=== PATIENT | male | born 1975 | race Caucasian/White ===

== ENCOUNTER 2017-08-09 11:30 | Inpatient (IN) | payer OTHER ==
[2017-08-09 13:11] VITALS: BMI 22.4
--- NOTE | 2017-08-09 14:54 | HP ---
CIWA Score - CIWA Score Nausea/Vomitin Muscle Tremors: 3 Anxiety: 3 Agitation: 3 Paroxysmal Sweats: 1-Minimal Palms Moist Orientation: 0-Oriented Tacttile Disturbances: 2-Mild Itch/Numbness/Burn Auditory Disturbances: 1-Very Mild Visual Disturbances: 0-None Headache: 2-Mild CIWA-Ar Total Score: 18 Admission ROS BHS - HPI Chief Complaint: i need help to stop drinking alcohol,cocaine,marijuana,dependence,seeking detox, withdrawal symptom, last detox ac1 o4/18 hiv since 07/14/1999 transgender from male to female non compliance with medications for 4 months weight loss anxiety,depression,insomnia Allergies/Adverse Reactions: Allergies Allergy/AdvReac Type Severity Reaction Status Date / Time No Known Allergies Allergy Verified 08/09/17 14:35 History of Present Illness: this 42 years old transgender male to female requested detox from alcohol, cocaine,marijuana and crystal meth requested detox Exam Limitations: No Limitations - Ebola screening Have you traveled outside of the country in the last 21 days: No Have you had contact with anyone from an Ebola affected area: No Have you been sick,other than usual withdrawal symptoms: No Do you have a fever: No - Review of Systems Constitutional: Loss of Appetite, Malaise, Night Sweats, Changes in sleep, Weakness, Unintentional Wgt. Loss EENT: reports: Nose Congestion Respiratory: reports: No Symptoms reported Cardiac: reports: No Symptoms Reported GI: reports: Nausea, Vomiting, Abdominal cramping : reports: No Symptoms Reported Musculoskeletal: reports: Back Pain, Muscle Pain Integumentary: reports: Dryness Neuro: reports: Headache, Tremors Endocrine: reports: No Symptoms Reported Hematology: reports: No Symptoms Reported Psychiatric: reports: No Sypmtoms Reported, Judgement Intact, Mood/Affect Appropiate, Anxious, Depressed Patient History - Patient Medical History Hx Anemia: Yes (LAB PENDING) Hx Asthma: No Hx Chronic Obstructive Pulmonary Disease (COPD): No Hx Cancer: No Hx Cardiac Disorders: No Hx Congestive Heart Failure: No Hx Hypertension: No Hx Hypercholesterolemia: No Hx Pacemaker: No HX Cerebrovascular Accident: No Hx Seizures: No Hx Dementia: No Hx Diabetes: No Hx Gastrointestinal Disorders: No Hx Liver Disease: No Hx Genitourinary Disorders: No Hx Sexually Transmitted Disorders: Yes (syphilis at age 38) Hx Renal Disease (ESRD): No Hx Thyroid Disease: No Hx Human Immunodeficiency Virus (HIV): Yes (since 07/14/1999) Hx Hepatitis C: No Hx Depression: No Hx Suicide Attempt: No Hx Bipolar Disorder: No Hx Schizophrenia: No Other Medical History: no suicidal,no homicidal - Patient Surgical History Past Surgical History: No Hx Neurologic Surgery: No Hx Cataract Extraction: No Hx Cardiac Surgery: No Hx Lung Surgery: No Hx Breast Surgery: No Hx Breast Biopsy: No Hx Abdominal Surgery: No Hx Appendectomy: No Hx Cholecystectomy: No Hx Genitourinary Surgery: No Hx Section: No Hx Orthopedic Surgery: No Anesthesia Reaction: No - PPD History Previous Implant?: Yes Documented Results: Negative w/o proof Implanted On Prior R Admission?: Yes Date: 12/10/15 PPD to be Administered?: Yes - Smoking Cessation Smoking history: Current every day smoker Have you smoked in the past 12 months: Yes Aproximately how many cigarettes per day: 20 Cigars Per Day: 0 Hx Chewing Tobacco Use: No Initiated information on smoking cessation: Yes 'Breaking Loose' booklet given: 08/09/17 - Substance & Tx. History Hx Alcohol Use: Yes Hx Substance Use: Yes Substance Use Type: Alcohol, Cocaine, Marijuana - Substances Abused Alcohol Route: Oral Frequency: Daily Amount used: 4 PINTS VODKA Age of first use: 12 Date of Last Use: 08/09/17 Cocaine Route: Smoking Frequency: Daily Amount used: $100-200 Age of first use: 16 Date of Last Use: 08/09/17 Marijuana/Hashish Route: Smoking Frequency: Daily Amount used: 1 blunt Age of first use: 13 Date of Last Use: 08/09/17 crystal meth Route: Smoking Frequency: 1-3 times last 30 days Amount used: 1 joint Age of first use: 38 Date of Last Use: 07/31/17 Family Disease History - Family Disease History Family Disease History: Diabetes: Grandparent, Sister Admission Physical Exam BHS - Vital Signs Vital Signs: Vital Signs - 24 hr 08/09/17 13:09 Temperature 97.2 F L Pulse Rate 73 Respiratory 20 Rate Blood Pressure 128/85 - Physical General Appearance: Yes: Moderate Distress, Tremorous, Irritable, Sweating, Anxious HEENTM: Yes: Normal ENT Inspection, KOURTNEY, Pharynx Normal Respiratory: Yes: Lungs Clear, Normal Breath Sounds, No Respiratory Distress Neck: Yes: Within Normal Limits, Supple, Trachea in good position Breast: Yes: Within Normal Limits Cardiology: Yes: Within Normal Limits, Regular Rhythm, Regular Rate, S1, S2 Abdominal: Yes: Within Normal Limits, Normal Bowel Sounds, Non Tender, Flat, Soft Genitourinary: Yes: Within Normal Limits Back: Yes: Muscle Spasm Musculoskeletal: Yes: full range of Motion, Back pain, Muscle Pain Extremities: Yes: Normal Range of Motion, Tremors Neurological: Yes: welfare aide II-XII NML intact, Fully Oriented, Alert, Motor Strength 5/5 Integumentary: Yes: Dry Lymphatic: Yes: Within Normal Limits - Diagnostic (1) Alcohol dependence with withdrawal Current Visit: No Status: Acute Qualifiers: Complication of substance-induced condition: uncomplicated Qualified Code(s ): F10.230 - Alcohol dependence with withdrawal, uncomplicated (2) Cannabis dependence Current Visit: No Status: Chronic (3) Cocaine dependence in controlled environment Current Visit: No Status: Chronic (4) HIV disease Current Visit: No Status: Chronic (5) Nicotine dependence Current Visit: No Status: Chronic Qualifiers: Nicotine product type: cigarettes Substance use status: uncomplicated Qualified Code(s): F17.210 - Nicotine dependence, cigarettes, uncomplicated (6) Methamphetamine abuse Current Visit: Yes Status: Acute (7) Weight loss Current Visit: Yes Status: Acute (8) Endocrine disorder in ihst-if-voiood transgender person Current Visit: Yes Status: Acute Cleared for Admission [facility] - Detox or Rehab [facility] Level of Care: Medically Managed Detox Regimen/Protocol: Librium [facility] Breath Alcohol Content Breath Alcohol Content: 0 Urine Drug Screen - Results Drug Screen Negative: No Urine Drug Screen Results: THC-Marijuana, DON-Cocaine, AMP-Amphetamines, MET- Methamphetamine, BZO-Benzodiazepines
[2017-08-09] MEDS ORDERED: guaiFENesin/D-METHORPHAN HB 10 ML UNIT-DOSE CUPS PO PRN (15:10)
[2017-08-09] MEDS ORDERED: chlordiazePOXIDE HCL 25 MG CAPSULE PO PRN (15:10)
[2017-08-09] MEDS ORDERED: LOPERAMIDE HCL 2 MG CAPSULE PO PRN (15:10)
[2017-08-09] MEDS ORDERED: MAG HYDROX/AL HYDROX/SIMETH 30 ML UNIT-DOSE CUP PO PRN (15:10)
[2017-08-09] MEDS ORDERED: NICOTINE POLACRILEX 2 MG GUM BC PRN (15:10)
[2017-08-09] MEDS ORDERED: P-EPHED 60MG/TRIPROLIDI 2.5MG TABLET PO PRN (15:10)
[2017-08-09] MEDS ORDERED: IBUPROFEN 400 MG TABLET (FP) PO PRN (15:10)
[2017-08-09] MEDS ORDERED: MAGNESIUM HYDROX 2400MG/30ML ORAL SUSPENSION 30 ML CUP PO PRN (15:10)
[2017-08-09] MEDS ORDERED: MENTHOL/PHENOL 1 EACH UD MM PRN (15:10)
[2017-08-09] MEDS ORDERED: hydrOXYzine PAMOATE 50 MG CAPSULE (FP) PO PRN (15:10)
[2017-08-09] MEDS ORDERED: MAGNESIUM CITRATE 300 ML BOTTLE PO PRN (15:10)
[2017-08-09] MEDS ORDERED: ACETAMINOPHEN 325 MG TABLET (FP) PO PRN (15:10)
[2017-08-09] MEDS ORDERED: chlordiazePOXIDE HCL 25 MG CAPSULE PO ONE (15:45)
[2017-08-09] MEDS: NICOTINE 21 MG/24 HOURS TOPICAL PATCH TD SCH (17:28)
[2017-08-09] MEDS: chlordiazePOXIDE HCL 25 MG CAPSULE PO SCH ×2 (18:22→22:30)
[2017-08-09] MEDS: THIAMINE HCL 100 MG TABLET (FP) PO SCH (22:28)
[2017-08-09 23:10] LABS: URINE APPEARANCE SLCLOUDY; URINE BILIRUBIN NEGATIVE (<2.0 mg/dL); URINE BLOOD NEGATIVE (NEGATIVE); URINE COLOR YELLOW; URINE GLUCOSE (UA) NEGATIVE (NEGATIVE); URINE KETONE NEGATIVE (NEGATIVE); URINE NITRITE NEGATIVE (NEGATIVE); URINE PROTEIN NEGATIVE (NEGATIVE); URINE UROBILINOGEN NEGATIVE mg/dL (0.2-1.0)
[2017-08-09 23:11] LABS: URINE LEUK ESTERASE 2+ (NEGATIVE)
[2017-08-09 23:18] LABS: EPI CELLS RARE /HPF (FEW); URINE MUCUS RARE
[2017-08-10] MEDS: chlordiazePOXIDE HCL 25 MG CAPSULE PO SCH ×2 (06:05→10:47)
[2017-08-10 10:20] LABS: HEMATOCRIT 43.8 % (35.4-49); HEMOGLOBIN 14.1 GM/dL (11.7-16.9); MCH 28.5 pg (25.7-33.7); MCHC 32.2 g/dl (32.0-35.9); MEAN CELL VOLUME 88.5 fl (80-96); RBC 4.95 M/mm3 (4.00-5.60); RDW 14.1 % (11.9-15.9); WHITE BLOOD COUNT 5.6 K/mm3 (4.0-10.0)
[2017-08-10 10:26] LABS: CHLORIDE 106 mmol/L (98-107); POTASSIUM 5.3 mmol/L (3.5-5.1); SODIUM 140 mmol/L (136-145)
[2017-08-10] MEDS: PRENATAL VITAMINS W/ FOLIC ACID TABLET (FP) PO SCH (10:46)
[2017-08-10] MEDS: NICOTINE 21 MG/24 HOURS TOPICAL PATCH TD SCH (10:47)
[2017-08-10 11:10] LABS: ALBUMIN 3.8 g/dl (3.4-5.0); ALK PHOS 93 U/L (45-117); ANION GAP 6 (8-16); BILIRUBIN,TOTAL 0.6 mg/dL (0.2-1.0); BLOOD UREA NITROGEN 13 mg/dL (7-18); CALCIUM 9.2 mg/dL (8.5-10.1); CO2 28 mmol/L (21-32); CREATININE 1.1 mg/dL (0.7-1.3); GLUCOSE,RANDOM 90 mg/dL (74-106); SGOT/AST 18 U/L (15-37); SGPT/ALT 22 U/L (12-78); TOT PROT 8.1 g/dl (6.4-8.2)
--- NOTE | 2017-08-10 11:29 | EKG ---
Test Reason : Blood Pressure : / mmHG Vent. Rate : 066 BPM Atrial Rate : 066 BPM P-R Int : 158 ms QRS Dur : 084 ms QT Int : 416 ms P-R-T Axes : 075 074 073 degrees QTc Int : 436 ms SINUS RHYTHM WITH MARKED SINUS ARRHYTHMIA NO PREVIOUS ECGS AVAILABLE Confirmed by PRICILA ESCOBAR MD ([id number]) on 08/10/2017 11:29:25 AM Referred By: Confirmed By:PRICILA ESCOBAR MD
[2017-08-10] MEDS ORDERED: diazePAM 5 MG TABLET PO PRN (11:39)
--- NOTE | 2017-08-10 11:50 | PN ---
S CIWA - CIWA Score Nausea/Vomitin Muscle Tremors: 3 Anxiety: 3 Agitation: 2 Paroxysmal Sweats: 1-Minimal Palms Moist Orientation: 0-Oriented Tacttile Disturbances: 1-Very Mild Itch/Numbness Auditory Disturbances: 1-Very Mild Visual Disturbances: 0-None Headache: 2-Mild CIWA-Ar Total Score: 16 BHS Progress Note (SOAP) Subjective: ALERT,IRRITABLE,ANXIOUS,INTERRUPTED SLEEP,TREMOR Objective: 08/10/17 11:45 Laboratory Last Values WBC 5.6 K/mm3 (4.0-10.0) D 08/10/17 05:50 RBC 4.95 M/mm3 (4.00-5.60) 08/10/17 05:50 Hgb 14.1 GM/dL (11.7-16.9) D 08/10/17 05:50 Hct 43.8 % (35.4-49) D 08/10/17 05:50 MCV 88.5 fl (80-96) 08/10/17 05:50 MCH 28.5 pg (25.7-33.7) 08/10/17 05:50 MCHC 32.2 g/dl (32.0-35.9) 08/10/17 05:50 RDW 14.1 % (11.9-15.9) 08/10/17 05:50 Plt Count No Result Required. 08/10/17 05:50 Manual Slide Review 08/10/17 05:50 Platelet Comment Mod plt clumping 08/10/17 05:50 Sodium 140 mmol/L (136-145) 08/10/17 05:50 Potassium 5.3 mmol/L (3.5-5.1) H 08/10/17 05:50 Chloride 106 mmol/L (98-107) 08/10/17 05:50 Carbon Dioxide 28 mmol/L (21-32) 08/10/17 05:50 Anion Gap 6 (8-16) L 08/10/17 05:50 BUN 13 mg/dL (7-18) 08/10/17 05:50 Creatinine 1.1 mg/dL (0.7-1.3) D 08/10/17 05:50 Creat Clearance w eGFR > 60 (>60) 08/10/17 05:50 Random Glucose 90 mg/dL (74-106) 08/10/17 05:50 Calcium 9.2 mg/dL (8.5-10.1) 08/10/17 05:50 Total Bilirubin 0.6 mg/dL (0.2-1.0) D 08/10/17 05:50 AST 18 U/L (15-37) D 08/10/17 05:50 ALT 22 U/L (12-78) 08/10/17 05:50 Alkaline Phosphatase 93 U/L (45-117) 08/10/17 05:50 Total Protein 8.1 g/dl (6.4-8.2) 08/10/17 05:50 Albumin 3.8 g/dl (3.4-5.0) 08/10/17 05:50 Urine Color Yellow 08/09/17 22:30 Urine Appearance Slcloudy 08/09/17 22:30 Urine pH 5.0 (5.0-8.0) 08/09/17 22:30 Ur Specific [place] 1.025 (1.001-1.035) 08/09/17 22:30 Urine Protein Negative (NEGATIVE) 08/09/17 22:30 Urine Glucose (UA) Negative (NEGATIVE) 08/09/17 22:30 Urine Ketones Negative (NEGATIVE) 08/09/17 22:30 Urine Blood Negative (NEGATIVE) 08/09/17 22:30 Urine Nitrite Negative (NEGATIVE) 08/09/17 22:30 Urine Bilirubin Negative (<2.0 mg/dL) 08/09/17 22:30 Urine Urobilinogen Negative mg/dL (0.2-1.0) 08/09/17 22:30 Ur Leukocyte Esterase 2+ (NEGATIVE) H 08/09/17 22:30 Urine WBC (Auto) 41 /hpf (3-5) 08/09/17 22:30 Urine RBC (Auto) 2 /hpf (0-3) 08/09/17 22:30 Ur Epithelial Cells Rare /HPF (FEW) 08/09/17 22:30 Urine Mucus Rare 08/09/17 22:30 08/10/17 11:47 EKG NSR,LVH QT 362/425 Laboratory Last Values WBC 5.6 K/mm3 (4.0-10.0) D 08/10/17 05:50 RBC 4.95 M/mm3 (4.00-5.60) 08/10/17 05:50 Hgb 14.1 GM/dL (11.7-16.9) D 08/10/17 05:50 Hct 43.8 % (35.4-49) D 08/10/17 05:50 MCV 88.5 fl (80-96) 08/10/17 05:50 MCH 28.5 pg (25.7-33.7) 08/10/17 05:50 MCHC 32.2 g/dl (32.0-35.9) 08/10/17 05:50 RDW 14.1 % (11.9-15.9) 08/10/17 05:50 Plt Count No Result Required. 08/10/17 05:50 Manual Slide Review 08/10/17 05:50 Platelet Comment Mod plt clumping 08/10/17 05:50 Sodium 140 mmol/L (136-145) 08/10/17 05:50 Potassium 5.3 mmol/L (3.5-5.1) H 08/10/17 05:50 Chloride 106 mmol/L (98-107) 08/10/17 05:50 Carbon Dioxide 28 mmol/L (21-32) 08/10/17 05:50 Anion Gap 6 (8-16) L 08/10/17 05:50 BUN 13 mg/dL (7-18) 08/10/17 05:50 Creatinine 1.1 mg/dL (0.7-1.3) D 08/10/17 05:50 Creat Clearance w eGFR > 60 (>60) 08/10/17 05:50 Random Glucose 90 mg/dL (74-106) 08/10/17 05:50 Calcium 9.2 mg/dL (8.5-10.1) 08/10/17 05:50 Total Bilirubin 0.6 mg/dL (0.2-1.0) D 08/10/17 05:50 AST 18 U/L (15-37) D 08/10/17 05:50 ALT 22 U/L (12-78) 08/10/17 05:50 Alkaline Phosphatase 93 U/L (45-117) 08/10/17 05:50 Total Protein 8.1 g/dl (6.4-8.2) 08/10/17 05:50 Albumin 3.8 g/dl (3.4-5.0) 08/10/17 05:50 Urine Color Yellow 08/09/17 22:30 Urine Appearance Slcloudy 08/09/17 22:30 Urine pH 5.0 (5.0-8.0) 08/09/17 22:30 Ur Specific [place] 1.025 (1.001-1.035) 08/09/17 22:30 Urine Protein Negative (NEGATIVE) 08/09/17 22:30 Urine Glucose (UA) Negative (NEGATIVE) 08/09/17 22:30 Urine Ketones Negative (NEGATIVE) 08/09/17 22:30 Urine Blood Negative (NEGATIVE) 08/09/17 22:30 Urine Nitrite Negative (NEGATIVE) 08/09/17 22:30 Urine Bilirubin Negative (<2.0 mg/dL) 08/09/17 22:30 Urine Urobilinogen Negative mg/dL (0.2-1.0) 08/09/17 22:30 Ur Leukocyte Esterase 2+ (NEGATIVE) H 08/09/17 22:30 Urine WBC (Auto) 41 /hpf (3-5) 08/09/17 22:30 Urine RBC (Auto) 2 /hpf (0-3) 08/09/17 22:30 Ur Epithelial Cells Rare /HPF (FEW) 08/09/17 22:30 Urine Mucus Rare 08/09/17 22:30 Assessment: 08/10/17 11:49 WITHDRAWAL SYMPTOM Plan: CONTINUE DETOX,K 5.3,WILL REPEAT K IN AM,REPEAT UA R/O UTI
[2017-08-10] MEDS ORDERED: diazePAM 5 MG TABLET PO ONE (12:05)
[2017-08-10] MEDS: diazePAM 5 MG TABLET PO SCH ×2 (13:59→22:42)
[2017-08-10] MEDS ORDERED: chlordiazePOXIDE HCL 25 MG CAPSULE PO SCH (17:00)
--- NOTE | 2017-08-10 19:39 | CONSULT ---
[facility] Psychiatric Consult - Data Date of interview: 08/10/17 Admission source: [facility] Identifying data: Readmission to [facility] for this 42 y/o AA transgender male seeking detox treatment on for alcohol,cocaine,methamphetamine and cannabis dependence.Patient is single without children,homeless,unemployed and supported on [employer] funds. Substance Abuse History: Confirmed by patient in this interview.Smoking history : Current every day smoker. Have you smoked in the past 12 months: Yes. Aproximately how many cigarettes per day: 20. Cigars Per Day: 0. Hx Chewing Tobacco Use: No. Initiated information on smoking cessation: Yes. 'Breaking Loose' booklet given: 08/09/17. - Substance & Tx. History. Hx Alcohol Use: Yes. Hx Substance Use: Yes. Substance Use Type: Alcohol, Cocaine, Marijuana. - Substances Abused. Alcohol. Route: Oral. Frequency: Daily. Amount used : 4 PINTS VODKA. Age of first use: 12. Date of Last Use: 08/09/17. Cocaine. Route: Smoking. Frequency: Daily. Amount used: $100-200. Age of first use: 16. Date of Last Use: 08/09/17. Marijuana/Hashish. Route: Smoking. Frequency: Daily. Amount used: 1 blunt. Age of first use: 13. Date of Last Use: 08/09/17. crystal meth. Route: Smoking. Frequency: 1-3 times last 30 days. Amount used: 1 joint. Age of first use: 38. Date of Last Use: 07/31/17 Medical History: HIV infection since 1999,anemia and a history of treatment for syphilis. Psychiatric History: Patient denies. Physical/Sexual Abuse/Trauma History: Patient denies. Additional Comment: Urine Drug Screen Results: THC-Marijuana, DON-Cocaine, AMP- Amphetamines, MET-Methamphetamine, BZO-Benzodiazepines.Noted. Mental Status Exam - Mental Status Exam Alert and Oriented to: Time, Place, Person Cognitive Function: Good Patient Appearance: Well Groomed Mood: Hopeful Affect: Normal Range Patient Behavior: Fatigued, Cooperative Speech Pattern: Clear Voice Loudness: Normal Thought Process: Intact, Goal Oriented Thought Disorder: Not Present Hallucinations: Denies Suicidal Ideation: Denies Homicidal Ideation: Denies Insight/Judgement: Poor Sleep: Well Appetite: Good Muscle strength/Tone: Normal Gait/Station: Normal Psychiatric Findings - Problem List ([place] 1, 2,3) (1) Opioid dependence with withdrawal Current Visit: Yes Status: Acute (2) Alcohol dependence with withdrawal Current Visit: Yes Status: Acute Qualifiers: Complication of substance-induced condition: uncomplicated Qualified Code(s ): F10.230 - Alcohol dependence with withdrawal, uncomplicated (3) Cannabis dependence Current Visit: Yes Status: Acute (4) Cocaine dependence in controlled environment Current Visit: Yes Status: Acute (5) Methamphetamine abuse Current Visit: Yes Status: Acute (6) Nicotine dependence Current Visit: Yes Status: Acute Qualifiers: Nicotine product type: cigarettes Substance use status: uncomplicated Qualified Code(s): F17.210 - Nicotine dependence, cigarettes, uncomplicated - Initial Treatment Plan Initial Treatment Plan: Psychoeducation.Detoxification in process.Observation.
[2017-08-10] MEDS: THIAMINE HCL 100 MG TABLET (FP) PO SCH (22:42)
[2017-08-11] MEDS: diazePAM 5 MG TABLET PO SCH ×3 (06:24→22:45)
[2017-08-11] MEDS: PRENATAL VITAMINS W/ FOLIC ACID TABLET (FP) PO SCH (10:42)
[2017-08-11] MEDS: NICOTINE 21 MG/24 HOURS TOPICAL PATCH TD SCH (10:42)
--- NOTE | 2017-08-11 12:14 | PN ---
BHS CIWA - CIWA Score Nausea/Vomitin Muscle Tremors: 2 Anxiety: 2 Agitation: 2 Paroxysmal Sweats: 1-Minimal Palms Moist Orientation: 0-Oriented Tacttile Disturbances: 1-Very Mild Itch/Numbness Auditory Disturbances: 1-Very Mild Visual Disturbances: 0-None Headache: 2-Mild CIWA-Ar Total Score: 14 BHS Progress Note (SOAP) Subjective: ALERT,IRRITABLE,ANXIOUS,INTERRUPTED SLEEP,ACHING PAIN Objective: 08/11/17 12:13 Vital Signs Temperature 98.6 F 08/11/17 09:24 Pulse Rate 93 H 08/11/17 09:24 Respiratory Rate 16 08/11/17 09:24 Blood Pressure 122/86 08/11/17 09:24 O2 Sat by Pulse Oximetry (%) Assessment: 08/11/17 12:13 WITHDRAWAL SYMPTOM Plan: CONTINUE DETOX,REPEAT UA
[2017-08-11] MEDS ORDERED: chlordiazePOXIDE 5 MG CAPSULE PO SCH (17:00)
[2017-08-11] MEDS: THIAMINE HCL 100 MG TABLET (FP) PO SCH (22:45)
[2017-08-11] MEDS: MELATONIN 5 MG TABLETS PO PRN (22:45)
[2017-08-12] MEDS: NICOTINE 21 MG/24 HOURS TOPICAL PATCH TD SCH (10:32)
[2017-08-12] MEDS: PRENATAL VITAMINS W/ FOLIC ACID TABLET (FP) PO SCH (10:32)
[2017-08-12] MEDS: diazePAM 5 MG TABLET PO SCH ×2 (10:32→22:37)
--- NOTE | 2017-08-12 14:10 | PN ---
S Progress Note (SOAP) Subjective: alert,irritable,anxious,interrupted sleep Objective: 08/12/17 14:09 Vital Signs Temperature 98.2 F 08/12/17 09:16 Pulse Rate 83 08/12/17 09:16 Respiratory Rate 20 08/12/17 09:16 Blood Pressure 125/73 08/12/17 09:16 O2 Sat by Pulse Oximetry (%) Assessment: 08/12/17 14:09 withdrawal symptom Plan: continue detox,discharge in am
[2017-08-12] MEDS ORDERED: chlordiazePOXIDE HCL 10 MG CAPSULE PO SCH (17:00)
[2017-08-12] MEDS: THIAMINE HCL 100 MG TABLET (FP) PO SCH (22:37)
[2017-08-12] MEDS: MELATONIN 5 MG TABLETS PO PRN (22:38)
--- NOTE | 2017-08-13 10:04 | PN ---
S Progress Note (SOAP) Subjective: ALERT,NO COMPLAINT Objective: 08/13/17 10:02 Vital Signs Temperature 97.9 F 08/13/17 09:30 Pulse Rate 86 08/13/17 09:30 Respiratory Rate 20 08/13/17 09:30 Blood Pressure 116/69 08/13/17 09:30 O2 Sat by Pulse Oximetry (%) Assessment: 08/13/17 10:03 DETOX COMPLETED,NO WITHDRAWAL SYMPTOM Plan: DISCHARGE TODAY,FOLLOW UP WITH REVELATION ARRANGEMENT
--- NOTE | 2017-08-13 10:10 | DS ---
[facility] Detox Discharge Summary Admission Date: 08/09/17 Discharge Date: 08/13/17 - History Present History: Alcohol Dependence, Cannabis Dependence, Cocaine Dependence Pertinent Past History: NICOTINE DEPENDENCE TRANSGENDER MALE TO FEMALE - Physical Exam Results Vital Signs: Vital Signs Temperature 97.9 F 08/13/17 09:30 Pulse Rate 86 08/13/17 09:30 Respiratory Rate 20 08/13/17 09:30 Blood Pressure 116/69 08/13/17 09:30 O2 Sat by Pulse Oximetry (%) Pertinent Admission Physical Exam Findings: WITHDRAWAL SIGN AND SYMPTOM Vital Signs Temperature 97.9 F 08/13/17 09:30 Pulse Rate 86 08/13/17 09:30 Respiratory Rate 20 08/13/17 09:30 Blood Pressure 116/69 08/13/17 09:30 O2 Sat by Pulse Oximetry (%) Laboratory Last Values WBC 5.6 K/mm3 (4.0-10.0) D 08/10/17 05:50 RBC 4.95 M/mm3 (4.00-5.60) 08/10/17 05:50 Hgb 14.1 GM/dL (11.7-16.9) D 08/10/17 05:50 Hct 43.8 % (35.4-49) D 08/10/17 05:50 MCV 88.5 fl (80-96) 08/10/17 05:50 MCH 28.5 pg (25.7-33.7) 08/10/17 05:50 MCHC 32.2 g/dl (32.0-35.9) 08/10/17 05:50 RDW 14.1 % (11.9-15.9) 08/10/17 05:50 Plt Count No Result Required. 08/10/17 05:50 Manual Slide Review 08/10/17 05:50 Platelet Comment Mod plt clumping 08/10/17 05:50 Sodium 140 mmol/L (136-145) 08/10/17 05:50 Potassium 4.4 mmol/L (3.5-5.1) 08/11/17 07:50 Chloride 106 mmol/L (98-107) 08/10/17 05:50 Carbon Dioxide 28 mmol/L (21-32) 08/10/17 05:50 Anion Gap 6 (8-16) L 08/10/17 05:50 BUN 13 mg/dL (7-18) 08/10/17 05:50 Creatinine 1.1 mg/dL (0.7-1.3) D 08/10/17 05:50 Creat Clearance w eGFR > 60 (>60) 08/10/17 05:50 Random Glucose 90 mg/dL (74-106) 08/10/17 05:50 Calcium 9.2 mg/dL (8.5-10.1) 08/10/17 05:50 Total Bilirubin 0.6 mg/dL (0.2-1.0) D 08/10/17 05:50 AST 18 U/L (15-37) D 08/10/17 05:50 ALT 22 U/L (12-78) 08/10/17 05:50 Alkaline Phosphatase 93 U/L (45-117) 08/10/17 05:50 Total Protein 8.1 g/dl (6.4-8.2) 08/10/17 05:50 Albumin 3.8 g/dl (3.4-5.0) 08/10/17 05:50 Urine Color Yellow 08/09/17 22:30 Urine Appearance Slcloudy 08/09/17 22:30 Urine pH 5.0 (5.0-8.0) 08/09/17 22:30 Ur Specific [place] 1.025 (1.001-1.035) 08/09/17 22:30 Urine Protein Negative (NEGATIVE) 08/09/17 22:30 Urine Glucose (UA) Negative (NEGATIVE) 08/09/17 22:30 Urine Ketones Negative (NEGATIVE) 08/09/17 22:30 Urine Blood Negative (NEGATIVE) 08/09/17 22:30 Urine Nitrite Negative (NEGATIVE) 08/09/17 22:30 Urine Bilirubin Negative (<2.0 mg/dL) 08/09/17 22:30 Urine Urobilinogen Negative mg/dL (0.2-1.0) 08/09/17 22:30 Ur Leukocyte Esterase 2+ (NEGATIVE) H 08/09/17 22:30 Urine WBC (Auto) 41 /hpf (3-5) 08/09/17 22:30 Urine RBC (Auto) 2 /hpf (0-3) 08/09/17 22:30 Ur Epithelial Cells Rare /HPF (FEW) 08/09/17 22:30 Urine Mucus Rare 08/09/17 22:30 RPR Titer Nonreactive (NONREACTIVE) 08/10/17 05:50 - Treatment Hospital Course: Detox Protocol Followed, Detoxed Safely, Responded well, Discharged Condition Good, Rehab Referral Accepted Patient has Accepted a Rehab Referral to: [facility] - Medication Discharge Medications: Ambulatory Orders Ascorbic Acid [Vitamin C -] 500 mg PO DAILY 12/08/15 Estradiol Valerate [Delestrogen] 40 mg IM Q15D 12/08/15 Spironolactone [Aldactone] 100 mg PO TID 12/08/15 Vitamin E 100 unit PO DAILY 12/08/15 Emtricitab/Rilpivirine/Tenofov [Complera -] 1 each PO DAILY 08/09/17 - Diagnosis (1) Alcohol dependence with withdrawal Current Visit: Yes Status: Acute Qualifiers: Complication of substance-induced condition: uncomplicated Qualified Code(s ): F10.230 - Alcohol dependence with withdrawal, uncomplicated (2) Cannabis dependence Current Visit: Yes Status: Acute (3) Cocaine dependence in controlled environment Current Visit: Yes Status: Acute (4) HIV disease Current Visit: No Status: Chronic (5) Nicotine dependence Current Visit: Yes Status: Acute Qualifiers: Nicotine product type: cigarettes Substance use status: uncomplicated Qualified Code(s): F17.210 - Nicotine dependence, cigarettes, uncomplicated (6) Methamphetamine abuse Current Visit: Yes Status: Acute (7) Weight loss Current Visit: Yes Status: Acute (8) Endocrine disorder in [id number] transgender person Current Visit: Yes Status: Acute
--- NOTE | 2017-08-13 10:16 | PN ---
[facility] Progress Note Note: PATIENT IRRITABLE,ANXIOUS ABOUT DISCHARGE,WILL MONITOR PATIENT FOR 24 HRS,FOR THE SAFETY AND PROPERLY PLACEMENT OF PATIENT,DISCHARGE IN AM
[2017-08-13] MEDS: PRENATAL VITAMINS W/ FOLIC ACID TABLET (FP) PO SCH (10:55)
[2017-08-13] MEDS: diazePAM 5 MG TABLET PO SCH ×2 (10:55→22:49)
[2017-08-13] MEDS: NICOTINE 21 MG/24 HOURS TOPICAL PATCH TD SCH (12:50)
[2017-08-13 18:37] LABS: URINE APPEARANCE SLCLOUDY; URINE BILIRUBIN NEGATIVE (<2.0 mg/dL); URINE BLOOD NEGATIVE (NEGATIVE); URINE COLOR YELLOW; URINE GLUCOSE (UA) NEGATIVE (NEGATIVE); URINE KETONE NEGATIVE (NEGATIVE); URINE NITRITE NEGATIVE (NEGATIVE); URINE PROTEIN NEGATIVE (NEGATIVE); URINE UROBILINOGEN NEGATIVE mg/dL (0.2-1.0)
[2017-08-13 18:38] LABS: EPI CELLS FEW /HPF (FEW); URINE LEUK ESTERASE 1+ (NEGATIVE); URINE MUCUS RARE
[2017-08-13] MEDS: THIAMINE HCL 100 MG TABLET (FP) PO SCH (22:49)
[2017-08-13] MEDS: MELATONIN 5 MG TABLETS PO PRN (22:49)
--- NOTE | 2017-08-14 08:44 | PN ---
[facility] Progress Note (SOAP) Subjective: ALERT,NO COMPLAINT Objective: 08/14/17 08:42 Vital Signs Temperature 98.1 F 08/14/17 06:00 Pulse Rate 72 08/14/17 06:00 Respiratory Rate 20 08/14/17 06:00 Blood Pressure 115/66 08/14/17 06:00 O2 Sat by Pulse Oximetry (%) Assessment: 08/14/17 08:42 DETOX COMPLETED,NO WITHDRAWAL SYMPTOM Plan: DISCHARGE TODAY
--- NOTE | 2017-08-14 08:49 | DS ---
[facility] Detox Discharge Summary Admission Date: 08/09/17 Discharge Date: 08/14/17 - History Present History: Alcohol Dependence, Cannabis Dependence, Cocaine Dependence Additional Comments: FOLLOW UP WITH AFTER CARE PROGRAM ARRANGEMENT Pertinent Past History: NICOTINE DEPENDENCE WEIGHT LOSS TRANSGENDER MALE TO FEMALE - Physical Exam Results Vital Signs: Vital Signs Temperature 98.1 F 08/14/17 06:00 Pulse Rate 72 08/14/17 06:00 Respiratory Rate 20 08/14/17 06:00 Blood Pressure 115/66 08/14/17 06:00 O2 Sat by Pulse Oximetry (%) Pertinent Admission Physical Exam Findings: WITHDRAWAL SIGNS AND SYMPTOM Vital Signs Temperature 98.1 F 08/14/17 06:00 Pulse Rate 72 08/14/17 06:00 Respiratory Rate 20 08/14/17 06:00 Blood Pressure 115/66 08/14/17 06:00 O2 Sat by Pulse Oximetry (%) Laboratory Last Values WBC 5.6 K/mm3 (4.0-10.0) D 08/10/17 05:50 RBC 4.95 M/mm3 (4.00-5.60) 08/10/17 05:50 Hgb 14.1 GM/dL (11.7-16.9) D 08/10/17 05:50 Hct 43.8 % (35.4-49) D 08/10/17 05:50 MCV 88.5 fl (80-96) 08/10/17 05:50 MCH 28.5 pg (25.7-33.7) 08/10/17 05:50 MCHC 32.2 g/dl (32.0-35.9) 08/10/17 05:50 RDW 14.1 % (11.9-15.9) 08/10/17 05:50 Plt Count No Result Required. 08/10/17 05:50 Manual Slide Review 08/10/17 05:50 Platelet Comment Mod plt clumping 08/10/17 05:50 Sodium 140 mmol/L (136-145) 08/10/17 05:50 Potassium 4.4 mmol/L (3.5-5.1) 08/11/17 07:50 Chloride 106 mmol/L (98-107) 08/10/17 05:50 Carbon Dioxide 28 mmol/L (21-32) 08/10/17 05:50 Anion Gap 6 (8-16) L 08/10/17 05:50 BUN 13 mg/dL (7-18) 08/10/17 05:50 Creatinine 1.1 mg/dL (0.7-1.3) D 08/10/17 05:50 Creat Clearance w eGFR > 60 (>60) 08/10/17 05:50 Random Glucose 90 mg/dL (74-106) 08/10/17 05:50 Calcium 9.2 mg/dL (8.5-10.1) 08/10/17 05:50 Total Bilirubin 0.6 mg/dL (0.2-1.0) D 08/10/17 05:50 AST 18 U/L (15-37) D 08/10/17 05:50 ALT 22 U/L (12-78) 08/10/17 05:50 Alkaline Phosphatase 93 U/L (45-117) 08/10/17 05:50 Total Protein 8.1 g/dl (6.4-8.2) 08/10/17 05:50 Albumin 3.8 g/dl (3.4-5.0) 08/10/17 05:50 Urine Color Yellow 08/13/17 09:38 Urine Appearance Slcloudy 08/13/17 09:38 Urine pH 7.0 (5.0-8.0) D 08/13/17 09:38 Ur Specific [place] 1.025 (1.001-1.035) 08/13/17 09:38 Urine Protein Negative (NEGATIVE) 08/13/17 09:38 Urine Glucose (UA) Negative (NEGATIVE) 08/13/17 09:38 Urine Ketones Negative (NEGATIVE) 08/13/17 09:38 Urine Blood Negative (NEGATIVE) 08/13/17 09:38 Urine Nitrite Negative (NEGATIVE) 08/13/17 09:38 Urine Bilirubin Negative (<2.0 mg/dL) 08/13/17 09:38 Urine Urobilinogen Negative mg/dL (0.2-1.0) 08/13/17 09:38 Ur Leukocyte Esterase 1+ (NEGATIVE) H 08/13/17 09:38 Urine WBC (Auto) 17 /hpf (3-5) 08/13/17 09:38 Urine RBC (Auto) 4 /hpf (0-3) 08/13/17 09:38 Ur Epithelial Cells Few /HPF (FEW) 08/13/17 09:38 Urine Mucus Rare 08/13/17 09:38 RPR Titer Nonreactive (NONREACTIVE) 08/10/17 05:50 - Treatment Hospital Course: Detox Protocol Followed, Detoxed Safely, Responded well, Discharged Condition Good, Rehab Referral Accepted Patient has Accepted a Rehab Referral to: [facility] - Medication Discharge Medications: Ambulatory Orders Ascorbic Acid [Vitamin C -] 500 mg PO DAILY 12/08/15 Estradiol Valerate [Delestrogen] 40 mg IM Q15D 12/08/15 Spironolactone [Aldactone] 100 mg PO TID 12/08/15 Vitamin E 100 unit PO DAILY 12/08/15 Emtricitab/Rilpivirine/Tenofov [Complera -] 1 each PO DAILY 08/09/17 - Diagnosis (1) Alcohol dependence with withdrawal Current Visit: Yes Status: Acute Qualifiers: Complication of substance-induced condition: uncomplicated Qualified Code(s ): F10.230 - Alcohol dependence with withdrawal, uncomplicated (2) Cannabis dependence Current Visit: Yes Status: Acute (3) Cocaine dependence in controlled environment Current Visit: Yes Status: Acute (4) HIV disease Current Visit: No Status: Chronic (5) Nicotine dependence Current Visit: Yes Status: Acute Qualifiers: Nicotine product type: cigarettes Substance use status: uncomplicated Qualified Code(s): F17.210 - Nicotine dependence, cigarettes, uncomplicated (6) Methamphetamine abuse Current Visit: Yes Status: Acute (7) Weight loss Current Visit: Yes Status: Acute (8) Endocrine disorder in [id number] transgender person Current Visit: Yes Status: Acute - AMA Did Patient Leave Against Medical Advice: No
[2017-08-14] MEDS ORDERED: diazePAM 5 MG TABLET PO SCH (10:00)
[2017-08-14] MEDS: PRENATAL VITAMINS W/ FOLIC ACID TABLET (FP) PO SCH (10:36)
[2017-08-14] MEDS: NICOTINE 21 MG/24 HOURS TOPICAL PATCH TD SCH (10:36)
[2017-08-14 14:04] VITALS: BP 137/74; PULSE 86; TEMP 98.7
--- NOTE | 2017-08-21 13:30 | EKG ---
Test Reason : Blood Pressure : / mmHG Vent. Rate : 083 BPM Atrial Rate : 083 BPM P-R Int : 152 ms QRS Dur : 078 ms QT Int : 362 ms P-R-T Axes : 080 073 070 degrees QTc Int : 425 ms NORMAL SINUS RHYTHM MINIMAL VOLTAGE CRITERIA FOR LVH, MAY BE NORMAL VARIANT BORDERLINE ECG WHEN COMPARED WITH ECG OF 09-AUG-2017 18:09, NO SIGNIFICANT CHANGE WAS FOUND Confirmed by MD ELLEN, JORDI ([id number]) on 08/21/2017 1:30:21 PM Referred By: Confirmed By:JORDI HUGHES MD
== END 2017-08-14 14:39 | disposition home or self-care (01) | DRG 774 ==
LOC: YASAS 11:30 → Y6N 15:03
PROVIDERS: ADMIT Surgery; ATTEND Surgery
PROC: HZ2ZZZZ Detoxification Services for Substance Abuse Treatment (ICD-10-PCS; principal; 2017-08-09)
DX: F10.230 Alcohol dependence with withdrawal, uncomplicated (principal); F14.20 Cocaine dependence, uncomplicated; F12.20 Cannabis dependence, uncomplicated; F17.213 Nicotine dependence, cigarettes, with withdrawal; F15.10 Other stimulant abuse, uncomplicated; Z21 Asymptomatic human immunodeficiency virus [HIV] infection status; E34.9 Endocrine disorder, unspecified; F64.1 Dual role transvestism; R63.4 Abnormal weight loss; Z68.22 Body mass index [BMI] 22.0-22.9, adult; Z86.19 Personal history of other infectious and parasitic diseases
CPT/HCPCS: 36415; 80053; 81003; 81015; 84132; 85027; 86593; 93005; 93010

== ENCOUNTER 2017-10-22 17:07 | Inpatient (IN) | payer OTHER ==
[2017-10-22 21:30] VITALS: BMI 20.8
[2017-10-22] MEDS ORDERED: MELATONIN 5 MG TABLETS PO PRN (22:00)
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
[2017-10-22] MEDS ORDERED: MAGNESIUM HYDROX 2400MG/30ML ORAL SUSPENSION 30 ML CUP PO PRN (22:12)
[2017-10-22] MEDS ORDERED: ACETAMINOPHEN 325 MG TABLET (FP) PO PRN (22:12)
[2017-10-22] MEDS ORDERED: IBUPROFEN 400 MG TABLET (FP) PO PRN (22:12)
[2017-10-22] MEDS ORDERED: hydrOXYzine PAMOATE 50 MG CAPSULE (FP) PO PRN (22:12)
[2017-10-22] MEDS ORDERED: NICOTINE POLACRILEX 2 MG GUM BUC PRN (22:12)
[2017-10-22] MEDS ORDERED: LOPERAMIDE HCL 2 MG CAPSULE PO PRN (22:12)
[2017-10-22] MEDS ORDERED: MAGNESIUM CITRATE 300 ML BOTTLE PO PRN (22:12)
[2017-10-22] MEDS ORDERED: MAG HYDROX/AL HYDROX/SIMETH 30 ML UNIT-DOSE CUP PO PRN (22:12)
[2017-10-22] MEDS ORDERED: P-EPHED 60MG/TRIPROLIDI 2.5MG TABLET PO PRN (22:12)
[2017-10-22] MEDS ORDERED: guaiFENesin/D-METHORPHAN HB 10 ML UNIT-DOSE CUPS PO PRN (22:12)
[2017-10-22] MEDS ORDERED: MENTHOL/PHENOL 1 EACH UD MM PRN (22:12)
[2017-10-22] MEDS ORDERED: BACITRACIN 0.9 GM PACKET TP ONE (22:23)
[2017-10-23] MEDS: chlordiazePOXIDE HCL 25 MG CAPSULE PO PRN (01:20)
[2017-10-23] MEDS: chlordiazePOXIDE HCL 25 MG CAPSULE PO SCH ×5 (01:20→23:07)
[2017-10-23] MEDS: NICOTINE 21 MG/24 HOURS TOPICAL PATCH TD SCH (11:04)
[2017-10-23] MEDS: PRENATAL VITAMINS W/ FOLIC ACID TABLET (FP) PO SCH (11:04)
[2017-10-23 11:06] LABS: HEMATOCRIT 40.7 % (35.4-49); HEMOGLOBIN 13.2 GM/dL (11.7-16.9); MCH 27.9 pg (25.7-33.7); MCHC 32.5 g/dl (32.0-35.9); MEAN CELL VOLUME 85.8 fl (80-96); MEAN PLT VOLUME 9.7 fl (7.5-11.1); PLATELET COUNT 195 K/MM3 (134-434); RBC 4.74 M/mm3 (4.00-5.60); RDW 15.3 % (11.9-15.9); WHITE BLOOD COUNT 4.8 K/mm3 (4.0-10.0)
[2017-10-23 11:18] LABS: CHLORIDE 105 mmol/L (98-107); POTASSIUM 4.1 mmol/L (3.5-5.1); SODIUM 139 mmol/L (136-145)
[2017-10-23 11:24] LABS: ALBUMIN 3.1 g/dl (3.4-5.0); ALK PHOS 75 U/L (45-117); ANION GAP 7 (8-16); BILIRUBIN,TOTAL 0.4 mg/dL (0.2-1.0); BLOOD UREA NITROGEN 19 mg/dL (7-18); CALCIUM 8.7 mg/dL (8.5-10.1); CO2 27 mmol/L (21-32); GLUCOSE,RANDOM 80 mg/dL (74-106); SGOT/AST 16 U/L (15-37); SGPT/ALT 23 U/L (12-78)
--- NOTE | 2017-10-23 12:57 | PN ---
S CIWA - CIWA Score Nausea/Vomitin Muscle Tremors: 3 Anxiety: 2 Agitation: 2 Paroxysmal Sweats: 1-Minimal Palms Moist Orientation: 0-Oriented Tacttile Disturbances: 1-Very Mild Itch/Numbness Auditory Disturbances: 1-Very Mild Visual Disturbances: 0-None Headache: 2-Mild CIWA-Ar Total Score: 15 S Progress Note (SOAP) Subjective: alert,irritable,anxious,interrupted sleep,tremor,pain in the body Objective: 10/23/17 12:54 Vital Signs Temperature 97.3 F L 10/23/17 11:16 Pulse Rate 89 10/23/17 11:16 Respiratory Rate 18 10/23/17 11:16 Blood Pressure 126/91 10/23/17 11:16 O2 Sat by Pulse Oximetry (%) ekg nsr with sinus arrhythmia rate 51/min qt/qtc 444/409 no chest pain,no sob,no dizziness Laboratory Last Values WBC 4.8 K/mm3 (4.0-10.0) 10/23/17 07:00 RBC 4.74 M/mm3 (4.00-5.60) 10/23/17 07:00 Hgb 13.2 GM/dL (11.7-16.9) 10/23/17 07:00 Hct 40.7 % (35.4-49) 10/23/17 07:00 MCV 85.8 fl (80-96) 10/23/17 07:00 MCH 27.9 pg (25.7-33.7) 10/23/17 07:00 MCHC 32.5 g/dl (32.0-35.9) 10/23/17 07:00 RDW 15.3 % (11.9-15.9) 10/23/17 07:00 Plt Count 195 K/MM3 (134-434) D 10/23/17 07:00 MPV 9.7 fl (7.5-11.1) 10/23/17 07:00 Sodium 139 mmol/L (136-145) 10/23/17 07:00 Potassium 4.1 mmol/L (3.5-5.1) 10/23/17 07:00 Chloride 105 mmol/L (98-107) 10/23/17 07:00 Carbon Dioxide 27 mmol/L (21-32) 10/23/17 07:00 Anion Gap 7 (8-16) L 10/23/17 07:00 BUN 19 mg/dL (7-18) H 10/23/17 07:00 Creatinine 1.0 mg/dL (0.7-1.3) 10/23/17 07:00 Creat Clearance w eGFR > 60 (>60) 10/23/17 07:00 Random Glucose 80 mg/dL (74-106) 10/23/17 07:00 Calcium 8.7 mg/dL (8.5-10.1) 10/23/17 07:00 Total Bilirubin 0.4 mg/dL (0.2-1.0) 10/23/17 07:00 AST 16 U/L (15-37) 10/23/17 07:00 ALT 23 U/L (12-78) 10/23/17 07:00 Alkaline Phosphatase 75 U/L (45-117) 10/23/17 07:00 Total Protein 7.0 g/dl (6.4-8.2) 10/23/17 07:00 Albumin 3.1 g/dl (3.4-5.0) L 10/23/17 07:00 Assessment: 10/23/17 12:56 withdrawal symptom Plan: continue detox,ensure plus 120 mls po bid
--- NOTE | 2017-10-23 16:29 | EKG ---
Test Reason : Blood Pressure : / mmHG Vent. Rate : 051 BPM Atrial Rate : 051 BPM P-R Int : 152 ms QRS Dur : 094 ms QT Int : 444 ms P-R-T Axes : 038 075 071 degrees QTc Int : 409 ms SINUS BRADYCARDIA WITH SINUS ARRHYTHMIA MINIMAL VOLTAGE CRITERIA FOR LVH, MAY BE NORMAL VARIANT BORDERLINE ECG Confirmed by Bernard Sellers MD ([id number]) on 10/23/2017 4:28:48 PM Referred By: Confirmed By:Bernard Sellers MD
[2017-10-23] MEDS: THIAMINE HCL 100 MG TABLET (FP) PO SCH (23:07)
[2017-10-24] MEDS: chlordiazePOXIDE HCL 25 MG CAPSULE PO SCH ×3 (06:39→17:42)
--- NOTE | 2017-10-24 10:36 | PN ---
S CIWA - CIWA Score Nausea/Vomitin Muscle Tremors: 3 Anxiety: 3 Agitation: 3 Paroxysmal Sweats: 1-Minimal Palms Moist Orientation: 0-Oriented Tacttile Disturbances: 1-Very Mild Itch/Numbness Auditory Disturbances: 1-Very Mild Visual Disturbances: 0-None Headache: 2-Mild CIWA-Ar Total Score: 17 BHS Progress Note (SOAP) Subjective: alert,irritable,anxious,interrupted sleep,pain in the bod and back Objective: 10/24/17 10:34 Vital Signs Temperature 97.7 F 10/24/17 09:22 Pulse Rate 64 10/24/17 09:22 Respiratory Rate 18 10/24/17 09:22 Blood Pressure 112/59 10/24/17 09:22 O2 Sat by Pulse Oximetry (%) Laboratory Last Values WBC 4.8 K/mm3 (4.0-10.0) 10/23/17 07:00 RBC 4.74 M/mm3 (4.00-5.60) 10/23/17 07:00 Hgb 13.2 GM/dL (11.7-16.9) 10/23/17 07:00 Hct 40.7 % (35.4-49) 10/23/17 07:00 MCV 85.8 fl (80-96) 10/23/17 07:00 MCH 27.9 pg (25.7-33.7) 10/23/17 07:00 MCHC 32.5 g/dl (32.0-35.9) 10/23/17 07:00 RDW 15.3 % (11.9-15.9) 10/23/17 07:00 Plt Count 195 K/MM3 (134-434) D 10/23/17 07:00 MPV 9.7 fl (7.5-11.1) 10/23/17 07:00 Sodium 139 mmol/L (136-145) 10/23/17 07:00 Potassium 4.1 mmol/L (3.5-5.1) 10/23/17 07:00 Chloride 105 mmol/L (98-107) 10/23/17 07:00 Carbon Dioxide 27 mmol/L (21-32) 10/23/17 07:00 Anion Gap 7 (8-16) L 10/23/17 07:00 BUN 19 mg/dL (7-18) H 10/23/17 07:00 Creatinine 1.0 mg/dL (0.7-1.3) 10/23/17 07:00 Creat Clearance w eGFR > 60 (>60) 10/23/17 07:00 Random Glucose 80 mg/dL (74-106) 10/23/17 07:00 Calcium 8.7 mg/dL (8.5-10.1) 10/23/17 07:00 Total Bilirubin 0.4 mg/dL (0.2-1.0) 10/23/17 07:00 AST 16 U/L (15-37) 10/23/17 07:00 ALT 23 U/L (12-78) 10/23/17 07:00 Alkaline Phosphatase 75 U/L (45-117) 10/23/17 07:00 Total Protein 7.0 g/dl (6.4-8.2) 10/23/17 07:00 Albumin 3.1 g/dl (3.4-5.0) L 10/23/17 07:00 RPR Titer Nonreactive (NONREACTIVE) 10/23/17 07:00 Assessment: 10/24/17 10:35 withdrawal symptom Plan: continue detox
[2017-10-24] MEDS: NICOTINE 21 MG/24 HOURS TOPICAL PATCH TD SCH (10:55)
[2017-10-24 10:57] LABS: URINE APPEARANCE CLEAR; URINE BILIRUBIN NEGATIVE (<2.0 mg/dL); URINE COLOR LTYELLOW; URINE GLUCOSE (UA) NEGATIVE (NEGATIVE); URINE KETONE NEGATIVE (NEGATIVE); URINE LEUK ESTERASE NEGATIVE (NEGATIVE); URINE NITRITE NEGATIVE (NEGATIVE); URINE PROTEIN NEGATIVE (NEGATIVE); URINE UROBILINOGEN NEGATIVE mg/dL (0.2-1.0)
[2017-10-24] MEDS: chlordiazePOXIDE HCL 25 MG CAPSULE PO PRN (12:40)
[2017-10-24] MEDS: PRENATAL VITAMINS W/ FOLIC ACID TABLET (FP) PO SCH (12:40)
[2017-10-24] MEDS: THIAMINE HCL 100 MG TABLET (FP) PO SCH (22:19)
[2017-10-24] MEDS: chlordiazePOXIDE 5 MG CAPSULE PO SCH (22:21)
[2017-10-25] MEDS: chlordiazePOXIDE 5 MG CAPSULE PO SCH ×3 (06:29→17:47)
[2017-10-25] MEDS: PRENATAL VITAMINS W/ FOLIC ACID TABLET (FP) PO SCH (10:45)
[2017-10-25] MEDS: NICOTINE 21 MG/24 HOURS TOPICAL PATCH TD SCH (10:45)
--- NOTE | 2017-10-25 10:58 | PN ---
S Progress Note (SOAP) Subjective: alert,irritable,anxious,interrupted sleep Objective: 10/25/17 10:57 Vital Signs Temperature 97.2 F L 10/25/17 10:27 Pulse Rate 70 10/25/17 10:27 Respiratory Rate 17 10/25/17 10:27 Blood Pressure 123/61 10/25/17 10:27 O2 Sat by Pulse Oximetry (%) Assessment: 10/25/17 10:57 withdrawal symptom Plan: continue detox,discharge in am
[2017-10-25 13:40] VITALS: BP 114/61; PULSE 87; TEMP 98.2
--- NOTE | 2017-10-25 21:30 | DS ---
[facility] Detox Discharge Summary Admission Date: 10/22/17 Discharge Date: 10/25/17 - History Additional Comments: Patient insist on leaving AMA, no distress. Follow up with PMD and out patient programs. If worsening symptoms are present follow up with ED or urgent care. - Physical Exam Results Vital Signs: Vital Signs Temperature 98.2 F 10/25/17 13:38 Pulse Rate 87 10/25/17 13:38 Respiratory Rate 17 10/25/17 13:38 Blood Pressure 114/61 10/25/17 13:38 O2 Sat by Pulse Oximetry (%) Pertinent Admission Physical Exam Findings: Vital Signs Temperature 98.2 F 10/25/17 13:38 Pulse Rate 87 10/25/17 13:38 Respiratory Rate 17 10/25/17 13:38 Blood Pressure 114/61 10/25/17 13:38 O2 Sat by Pulse Oximetry (%) Laboratory Last Values WBC 4.8 K/mm3 (4.0-10.0) 10/23/17 07:00 RBC 4.74 M/mm3 (4.00-5.60) 10/23/17 07:00 Hgb 13.2 GM/dL (11.7-16.9) 10/23/17 07:00 Hct 40.7 % (35.4-49) 10/23/17 07:00 MCV 85.8 fl (80-96) 10/23/17 07:00 MCH 27.9 pg (25.7-33.7) 10/23/17 07:00 MCHC 32.5 g/dl (32.0-35.9) 10/23/17 07:00 RDW 15.3 % (11.9-15.9) 10/23/17 07:00 Plt Count 195 K/MM3 (134-434) D 10/23/17 07:00 MPV 9.7 fl (7.5-11.1) 10/23/17 07:00 Sodium 139 mmol/L (136-145) 10/23/17 07:00 Potassium 4.1 mmol/L (3.5-5.1) 10/23/17 07:00 Chloride 105 mmol/L (98-107) 10/23/17 07:00 Carbon Dioxide 27 mmol/L (21-32) 10/23/17 07:00 Anion Gap 7 (8-16) L 10/23/17 07:00 BUN 19 mg/dL (7-18) H 10/23/17 07:00 Creatinine 1.0 mg/dL (0.7-1.3) 10/23/17 07:00 Creat Clearance w eGFR > 60 (>60) 10/23/17 07:00 Random Glucose 80 mg/dL (74-106) 10/23/17 07:00 Calcium 8.7 mg/dL (8.5-10.1) 10/23/17 07:00 Total Bilirubin 0.4 mg/dL (0.2-1.0) 10/23/17 07:00 AST 16 U/L (15-37) 10/23/17 07:00 ALT 23 U/L (12-78) 10/23/17 07:00 Alkaline Phosphatase 75 U/L (45-117) 10/23/17 07:00 Total Protein 7.0 g/dl (6.4-8.2) 10/23/17 07:00 Albumin 3.1 g/dl (3.4-5.0) L 10/23/17 07:00 Urine Color Ltyellow 10/24/17 08:00 Urine Appearance Clear 10/24/17 08:00 Urine pH 6.0 (5.0-8.0) 10/24/17 08:00 Ur Specific [place] 1.018 (1.001-1.035) 10/24/17 08:00 Urine Protein Negative (NEGATIVE) 10/24/17 08:00 Urine Glucose (UA) Negative (NEGATIVE) 10/24/17 08:00 Urine Ketones Negative (NEGATIVE) 10/24/17 08:00 Urine Blood Negative (NEGATIVE) 10/24/17 08:00 Urine Nitrite Negative (NEGATIVE) 10/24/17 08:00 Urine Bilirubin Negative (<2.0 mg/dL) 10/24/17 08:00 Urine Urobilinogen Negative mg/dL (0.2-1.0) 10/24/17 08:00 Ur Leukocyte Esterase Negative (NEGATIVE) 10/24/17 08:00 RPR Titer Nonreactive (NONREACTIVE) 10/23/17 07:00 - Medication Discharge Medications: Ambulatory Orders Ascorbic Acid [Vitamin C -] 500 mg PO DAILY 12/08/15 Estradiol Valerate [Delestrogen] 40 mg IM Q15D 12/08/15 Spironolactone [Aldactone] 100 mg PO TID 12/08/15 Vitamin E 100 unit PO DAILY 12/08/15 Emtricitab/Rilpivirine/Tenofov [Complera -] 1 each PO DAILY 08/09/17 - Diagnosis (1) Cocaine dependence Status: Acute Qualifiers: Substance use status: uncomplicated Qualified Code(s): F14.20 - Cocaine dependence, uncomplicated (2) Alcohol dependence with withdrawal Status: Acute Qualifiers: Complication of substance-induced condition: uncomplicated Qualified Code(s ): F10.230 - Alcohol dependence with withdrawal, uncomplicated (3) Anemia Status: Chronic Qualifiers: Anemia type: unspecified type Qualified Code(s): D64.9 - Anemia, unspecified (4) Cannabis dependence Status: Acute (5) Nicotine dependence Status: Acute Qualifiers: Nicotine product type: cigarettes Substance use status: uncomplicated Qualified Code(s): F17.210 - Nicotine dependence, cigarettes, uncomplicated (6) Weight loss Status: Acute (7) HIV disease Status: Chronic - AMA Did Patient Leave Against Medical Advice: Yes
[2017-10-25] MEDS ORDERED: chlordiazePOXIDE HCL 10 MG CAPSULE PO SCH (23:00)
== END 2017-10-25 16:50 | disposition left against medical advice (07) | DRG 770 ==
LOC: YASAS 17:07 → Y6N 23:36
PROVIDERS: ADMIT Surgery; ATTEND Surgery
PROC: HZ2ZZZZ Detoxification Services for Substance Abuse Treatment (ICD-10-PCS; principal; 2017-10-22)
DX: F10.230 Alcohol dependence with withdrawal, uncomplicated (principal); F14.20 Cocaine dependence, uncomplicated; F12.20 Cannabis dependence, uncomplicated; F17.210 Nicotine dependence, cigarettes, uncomplicated; Z21 Asymptomatic human immunodeficiency virus [HIV] infection status; D64.9 Anemia, unspecified; I49.9 Cardiac arrhythmia, unspecified; Z87.438 Personal history of other diseases of male genital organs; Z87.898 Personal history of other specified conditions
CPT/HCPCS: 36415; 80053; 81003; 85027; 86593; 93005; 93010

== ENCOUNTER 2018-01-19 12:04 | Inpatient (IN) | payer OTHER ==
[2018-01-19 16:04] VITALS: BMI 22.2
--- NOTE | 2018-01-19 18:20 | HP ---
COWS - Scale Resting Pulse: 0= [place] 80 or Below Sweatin= Chills/Flushing Restless Observation: 1= Difficult to Sit Still Pupil Size: 0= Normal to Room Light Bone or Joint Aches: 1= Mild Discomfort Runny Nose/ Eye Tearin= Runny Nose/Eyes GI Upset > 30mins: 3= Vomiting/Diarrhea Tremor Observation: 4= Gross Tremor/Twitching Yawning Observation: 1= 1-2x During Session Anxiety or Irritability: 2=Irritable/Anxious Goose Flesh Skin: 0=Smooth Skin COWS Score: 15 CIWA Score - CIWA Score Nausea/Vomitin Muscle Tremors: 4-Moderate,w/Arms Extend Anxiety: 3 Agitation: 3 Paroxysmal Sweats: 3 Orientation: 0-Oriented Tacttile Disturbances: 2-Mild Itch/Numbness/Burn Auditory Disturbances: 0-None Visual Disturbances: 0-None Headache: 0-None Present CIWA-Ar Total Score: 18 Admission ROS BHS - HPI Chief Complaint: "To get myself better" Allergies/Adverse Reactions: Allergies Allergy/AdvReac Type Severity Reaction Status Date / Time No Known Allergies Allergy Verified 08/09/17 14:35 History of Present Illness: 42 yr old transgender male - female (wants to be addressed as ROBERTO) with a long hx of addiction presents requesting detox from alcohol and heroin. Pt is known to our program and was last here in October. Admits to 22 months of Sobriety in 2012- 2013 due to attending NA programs and having a sponsor. Relapsed due to issues and has been "back and forth" since then. Denies alcohol-seizure but admits to having blackouts with the [place] Admits to smoking k2 whenever "I can get my hands on it", last smoked this morning. Pt denies recent ED nor hosp visit. Urine positive for Bzo but pt states it was probably cut with the heroin i used. Hx of :HIV - states he takes his meds but has not "used it in about a wk ago", explained to pt that he will not get his HIV meds here as his compliance prior to his visit cannot be ascertained cannot, he verbalized understanding. Depression but not on meds Transgender male to female (states he is on hormones to soften his features) Denies past nor current SI. Exam Limitations: No Limitations - Ebola screening Have you traveled outside of the country in the last 21 days: No (N) Have you had contact with anyone from an Ebola affected area: No Have you been sick,other than usual withdrawal symptoms: No Do you have a fever: No - Review of Systems Constitutional: Loss of Appetite, Night Sweats, Changes in sleep, Unintentional Wgt. Loss EENT: reports: Nose Congestion Respiratory: reports: No Symptoms reported Cardiac: reports: No Symptoms Reported GI: reports: Diarrhea : reports: No Symptoms Reported Musculoskeletal: reports: Back Pain, Joint Pain Integumentary: reports: No Symptoms Reported Neuro: reports: Headache, Tingling Endocrine: reports: No Symptoms Reported Hematology: reports: No Symptoms Reported Psychiatric: reports: Agitated, Anxious Other Systems: Reviewed and Negative Patient History - Patient Medical History Hx Anemia: Yes Hx Asthma: No Hx Chronic Obstructive Pulmonary Disease (COPD): No Hx Cancer: No Hx Cardiac Disorders: No Hx Congestive Heart Failure: No Hx Hypertension: No Hx Hypercholesterolemia: No Hx Pacemaker: No HX Cerebrovascular Accident: No Hx Seizures: Yes (K-2 INDUCED ON 2013) Hx Dementia: No Hx Diabetes: No Hx Gastrointestinal Disorders: No Hx Liver Disease: No Hx Genitourinary Disorders: No Hx Sexually Transmitted Disorders: Yes (syphillis) Hx Renal Disease (ESRD): No Hx Thyroid Disease: No Hx Human Immunodeficiency Virus (HIV): Yes (since 07/14/1999, reports having taken his meds in a wk and not with him) Hx Hepatitis C: No Hx Depression: Yes (not on meds) Hx Suicide Attempt: No (Denies Curent) Hx Bipolar Disorder: No Hx Schizophrenia: No - Patient Surgical History Past Surgical History: No Hx Neurologic Surgery: No Hx Cataract Extraction: No Hx Cardiac Surgery: No Hx Lung Surgery: No Hx Breast Surgery: No Hx Breast Biopsy: No Hx Abdominal Surgery: No Hx Appendectomy: No Hx Cholecystectomy: No Hx Genitourinary Surgery: No Hx Section: No Hx Orthopedic Surgery: No Anesthesia Reaction: No - PPD History Previous Implant?: Yes Documented Results: Negative w/proof Implanted On Prior R Admission?: Yes Date: 10/24/17 PPD to be Administered?: No - Reproductive History Patient is a Female of Child Bearing Age (11 -55 yrs old): No - Smoking Cessation Smoking history: Current every day smoker Have you smoked in the past 12 months: Yes Aproximately how many cigarettes per day: 40 Cigars Per Day: 0 Hx Chewing Tobacco Use: No Initiated information on smoking cessation: Yes 'Breaking Loose' booklet given: 01/19/18 - Substance & Tx. History Hx Alcohol Use: Yes Hx Substance Use: Yes Substance Use Type: Alcohol, Cocaine, Heroin, Marijuana Hx Substance Use Treatment: Yes - Substances Abused Alcohol Route: Oral Frequency: Daily Amount used: 2 PINTS OF VODKA Age of first use: 13 Date of Last Use: 01/19/18 Cocaine Route: Smoking Frequency: Daily Amount used: 3 GRAMS Age of first use: 15 Date of Last Use: 01/19/18 Heroin Route: Injection Frequency: Daily Amount used: 3 BAGS Age of first use: 14 Date of Last Use: 01/19/18 Marijuana/Hashish Route: Smoking Frequency: Daily Amount used: 1 DIME BAG Age of first use: 12 Date of Last Use: 01/19/18 Crack Route: Smoking Frequency: Daily Amount used: 5 GRAMS Age of first use: 15 Date of Last Use: 01/19/18 Family Disease History - Family Disease History Family Disease History: Diabetes: Grandparent, Sister Admission Physical Exam S - Vital Signs Vital Signs: Vital Signs - 24 hr 01/19/18 16:01 Temperature 98.2 F Pulse Rate 66 Respiratory 18 Rate Blood Pressure 124/70 - Physical General Appearance: Yes: Mild Distress, Irritable HEENTM: Yes: Nasal Congestion Respiratory: Yes: Normal Breath Sounds, No Respiratory Distress, No Accessory Muscle Use Neck: Yes: No masses,lesions,Nodules, Trachea in good position Breast: Yes: Breast Exam Deferred Cardiology: Yes: Regular Rate Abdominal: Yes: Non Tender, Increased Bowel Sounds (diarrhea) Genitourinary: Yes: Within Normal Limits Back: Yes: Within Normal Limits, Normal Inspection Musculoskeletal: Yes: full range of Motion, Gait Steady Extremities: Yes: Normal Capillary Refill, Other (has nail italian on) Neurological: Yes: Fully Oriented, Alert, Normal Mood/Affect Integumentary: Yes: Normal Color, Dry, Warm Lymphatic: Yes: Within Normal Limits - Diagnostic (1) Opioid dependence with withdrawal Current Visit: Yes Status: Acute (2) Uncomplicated alcohol dependence Current Visit: Yes Status: Acute (3) Nicotine dependence Current Visit: Yes Status: Acute Qualifiers: Nicotine product type: cigarettes Substance use status: uncomplicated Qualified Code(s): F17.210 - Nicotine dependence, cigarettes, uncomplicated (4) Cannabis dependence Current Visit: Yes Status: Chronic (5) Cocaine dependence Current Visit: Yes Status: Chronic Qualifiers: Substance use status: uncomplicated Qualified Code(s): F14.20 - Cocaine dependence, uncomplicated (6) Endocrine disorder in [id number] transgender person Current Visit: Yes Status: Chronic (7) Weight loss Current Visit: Yes Status: Chronic (8) HIV disease Current Visit: Yes Status: Chronic Comment: currently not on meds Cleared for Admission BHS - Detox or Rehab S Level of Care: Medically Managed Detox Regimen/Protocol: Methadone/Librium BHS Breath Alcohol Content Breath Alcohol Content: 0 Urine Drug Screen - Results Drug Screen Negative: No Urine Drug Screen Results: THC-Marijuana, DON-Cocaine, OPI-Opiates, BAR- Barbiturates, BZO-Benzodiazepines
[2018-01-19] MEDS ORDERED: MAGNESIUM HYDROX 2400MG/30ML ORAL SUSPENSION 30 ML CUP PO PRN (18:55)
[2018-01-19] MEDS ORDERED: ACETAMINOPHEN 325 MG TABLET (FP) PO PRN (18:55)
[2018-01-19] MEDS ORDERED: LOPERAMIDE HCL 2 MG CAPSULE PO PRN (18:55)
[2018-01-19] MEDS ORDERED: MAG HYDROX/AL HYDROX/SIMETH 30 ML UNIT-DOSE CUP PO PRN (18:55)
[2018-01-19] MEDS ORDERED: METHADONE HCL 10 MG TABLET (FOR DETOX USE ONLY) PO ONE ×2 (18:55→23:00)
[2018-01-19] MEDS ORDERED: MAGNESIUM CITRATE 300 ML BOTTLE PO PRN (18:55)
[2018-01-19] MEDS ORDERED: chlordiazePOXIDE HCL 25 MG CAPSULE PO PRN (18:55)
[2018-01-19] MEDS ORDERED: P-EPHED 60MG/TRIPROLIDI 2.5MG TABLET PO PRN (18:55)
[2018-01-19] MEDS ORDERED: IBUPROFEN 400 MG TABLET (FP) PO PRN (18:55)
[2018-01-19] MEDS ORDERED: MENTHOL/PHENOL 1 EACH UD MM PRN (18:55)
[2018-01-19] MEDS ORDERED: guaiFENesin/D-METHORPHAN HB 10 ML UNIT-DOSE CUPS PO PRN (18:55)
[2018-01-19] MEDS ORDERED: MELATONIN 5 MG TABLETS PO PRN (22:00)
[2018-01-19] MEDS ORDERED: METHADONE HCL 10 MG TABLET (FOR DETOX USE ONLY) ONE (23:02)
[2018-01-19] MEDS: chlordiazePOXIDE HCL 25 MG CAPSULE PO SCH (23:03)
[2018-01-19] MEDS: THIAMINE HCL 100 MG TABLET (FP) PO SCH (23:03)
[2018-01-19] MEDS: NICOTINE 21 MG/24 HOURS TOPICAL PATCH TD SCH (23:03)
[2018-01-20] MEDS: chlordiazePOXIDE HCL 25 MG CAPSULE PO SCH ×4 (05:32→22:09)
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
[2018-01-20] MEDS ORDERED: METHADONE HCL 10 MG TABLET (FOR DETOX USE ONLY) PO SCH (10:00)
[2018-01-20] MEDS: PRENATAL VITAMINS W/ FOLIC ACID TABLET (FP) PO SCH (10:09)
[2018-01-20] MEDS: NICOTINE 21 MG/24 HOURS TOPICAL PATCH TD SCH (10:10)
[2018-01-20 10:36] LABS: HEMATOCRIT 35.9 % (35.4-49); HEMOGLOBIN 12.1 GM/dL (11.7-16.9); MCHC 33.8 g/dl (32.0-35.9); MEAN CELL VOLUME 88.6 fl (80-96); MEAN PLT VOLUME 10.5 fl (7.5-11.1); PLATELET COUNT 246 K/MM3 (134-434); RBC 4.05 M/mm3 (4.00-5.60); RDW 16.1 % (11.9-15.9); WHITE BLOOD COUNT 4.3 K/mm3 (4.0-10.0)
[2018-01-20 10:50] LABS: ALBUMIN 2.9 g/dl (3.4-5.0); ALK PHOS 79 U/L (45-117); ANION GAP 6 MMOL/L (8-16); BILIRUBIN,TOTAL 0.3 mg/dL (0.2-1); BLOOD UREA NITROGEN 14 mg/dL (7-18); CALCIUM 7.9 mg/dL (8.5-10.1); CHLORIDE 110 mmol/L (98-107); CO2 25 mmol/L (21-32); CREATININE 0.9 mg/dL (0.55-1.3); GLUCOSE,RANDOM 69 mg/dL (74-106); POTASSIUM 4.2 mmol/L (3.5-5.1); SGOT/AST 17 U/L (15-37); SGPT/ALT 19 U/L (13-61); SODIUM 141 mmol/L (136-145)
--- NOTE | 2018-01-20 11:34 | EKG ---
Test Reason : Blood Pressure : / mmHG Vent. Rate : 071 BPM Atrial Rate : 071 BPM P-R Int : 160 ms QRS Dur : 080 ms QT Int : 474 ms P-R-T Axes : 072 075 077 degrees QTc Int : 515 ms NORMAL SINUS RHYTHM PROLONGED QT NONSPECIFIC ST ABNORMALITY ABNORMAL ECG WHEN COMPARED WITH ECG OF 23-OCT-2017 00:45, QT HAS LENGTHENED Confirmed by PRICILA ESCOBAR MD ([id number]) on 01/20/2018 11:33:59 AM Referred By: Confirmed By:PRICILA ESCOBAR MD
--- NOTE | 2018-01-20 16:52 | PN ---
[facility] CIWA - CIWA Score Nausea/Vomitin Muscle Tremors: 4-Moderate,w/Arms Extend Anxiety: 3 Agitation: 2 Paroxysmal Sweats: 3 Orientation: 0-Oriented Tacttile Disturbances: 1-Very Mild Itch/Numbness Auditory Disturbances: 0-None Visual Disturbances: 0-None Headache: 1-Very Mild CIWA-Ar Total Score: 16 BHS COWS - Scale Resting Pulse: 0= [place] 80 or Below Sweatin= Chills/Flushing Restless Observation: 3= Extraneous Movement Pupil Size: 0= Normal to Room Light Bone or Joint Aches: 2= Severe Diffuse Aches Runny Nose/ Eye Tearin= Runny Nose/Eyes GI Upset > 30mins: 2= Nausea/Diarrhea Tremor Observation of Outstretched Hands: 2= Slight Tremor Visible Yawning Observation: 1= 1-2x During Session Anxiety or Irritability: 2=Irritable/Anxious Goose Flesh Skin: 0=Smooth Skin COWS Score: 15 S Progress Note (SOAP) Subjective: Anxious, sweating, chills, interrupted sleep Objective: 01/20/18 16:51 Last Vital Signs Temp Pulse Resp BP Pulse Ox 96.6 F L 69 18 108/64 01/20/18 13:38 01/20/18 13:38 01/20/18 13:38 01/20/18 13:38 Laboratory Tests 01/20/18 01/20/18 01/20/18 07:44 07:44 07:44 WBC 4.3 RBC 4.05 Hgb 12.1 Hct 35.9 MCV 88.6 MCH 30.0 MCHC 33.8 RDW 16.1 H Plt Count 246 D MPV 10.5 Sodium 141 Potassium 4.2 Chloride 110 H Carbon Dioxide 25 Anion Gap 6 L BUN 14 Creatinine 0.9 Creat Clearance w eGFR > 60 Random Glucose 69 L Calcium 7.9 L Total Bilirubin 0.3 AST 17 ALT 19 Alkaline Phosphatase 79 Total Protein 6.0 L Albumin 2.9 L RPR Titer Nonreactive Labs reviewed Assessment: 01/20/18 16:51 Withdrawal symptoms Plan: Continue detox Encouraged PO water intake
[2018-01-20] MEDS: THIAMINE HCL 100 MG TABLET (FP) PO SCH (22:09)
[2018-01-20] MEDS: ZOLPIDEM TARTRATE 10 MG TABLET (PARK CARE ONLY) PO PRN (22:09)
[2018-01-21] MEDS: chlordiazePOXIDE HCL 25 MG CAPSULE PO SCH ×3 (05:35→18:05)
[2018-01-21] MEDS: METHADONE HCL 5 MG TABLET (FOR DETOX USE ONLY) PO SCH (10:14)
[2018-01-21] MEDS: PRENATAL VITAMINS W/ FOLIC ACID TABLET (FP) PO SCH (10:15)
[2018-01-21] MEDS: NICOTINE 21 MG/24 HOURS TOPICAL PATCH TD SCH (10:16)
--- NOTE | 2018-01-21 13:26 | PN ---
[facility] CIWA - CIWA Score Nausea/Vomitin-Mild Nausea/No Vomiting Muscle Tremors: 3 Anxiety: 2 Agitation: 2 Paroxysmal Sweats: 2 Orientation: 0-Oriented Tacttile Disturbances: 1-Very Mild Itch/Numbness Auditory Disturbances: 0-None Visual Disturbances: 0-None Headache: 1-Very Mild CIWA-Ar Total Score: 12 BHS COWS - Scale Resting Pulse: 1= [place] 81-100 Sweatin= Chills/Flushing Restless Observation: 3= Extraneous Movement Pupil Size: 0= Normal to Room Light Bone or Joint Aches: 1= Mild Discomfort Runny Nose/ Eye Tearin= Runny Nose/Eyes GI Upset > 30mins: 1= Stomach Cramp Tremor Observation of Outstretched Hands: 2= Slight Tremor Visible Yawning Observation: 0= None Anxiety or Irritability: 1=Feels Anxious/Irritable Goose Flesh Skin: 3=Piloerection COWS Score: 15 BHS Progress Note (SOAP) Subjective: Sweating, chills, goose bumps, nausea, tremor Objective: 01/21/18 13:23 Last Vital Signs Temp Pulse Resp BP Pulse Ox 98.7 F 87 18 116/69 01/21/18 13:17 01/21/18 13:17 01/21/18 13:17 01/21/18 13:17 Laboratory Tests 01/20/18 01/20/18 01/20/18 07:44 07:44 07:44 WBC 4.3 RBC 4.05 Hgb 12.1 Hct 35.9 MCV 88.6 MCH 30.0 MCHC 33.8 RDW 16.1 H Plt Count 246 D MPV 10.5 Sodium 141 Potassium 4.2 Chloride 110 H Carbon Dioxide 25 Anion Gap 6 L BUN 14 Creatinine 0.9 Creat Clearance w eGFR > 60 Random Glucose 69 L Calcium 7.9 L Total Bilirubin 0.3 AST 17 ALT 19 Alkaline Phosphatase 79 Total Protein 6.0 L Albumin 2.9 L RPR Titer Nonreactive Labs reviewed Assessment: 01/21/18 13:26 Withdrawal symptoms Plan: Continue detox Encouraged PO water intake
--- NOTE | 2018-01-21 14:39 | EKG ---
Test Reason : Blood Pressure : / mmHG Vent. Rate : 079 BPM Atrial Rate : 079 BPM P-R Int : 152 ms QRS Dur : 082 ms QT Int : 400 ms P-R-T Axes : 078 065 063 degrees QTc Int : 458 ms NORMAL SINUS RHYTHM MINIMAL VOLTAGE CRITERIA FOR LVH, MAY BE NORMAL VARIANT BORDERLINE ECG WHEN COMPARED WITH ECG OF 19-JAN-2018 22:12, QT HAS SHORTENED Confirmed by LEILANI SOSA, CATIE ([id number]) on 01/21/2018 2:39:15 PM Referred By: Confirmed By:CATIE DUKE MD
[2018-01-21] MEDS: chlordiazePOXIDE 5 MG CAPSULE PO SCH (22:30)
[2018-01-21] MEDS: ZOLPIDEM TARTRATE 10 MG TABLET (PARK CARE ONLY) PO PRN (22:30)
[2018-01-21] MEDS: THIAMINE HCL 100 MG TABLET (FP) PO SCH (22:30)
[2018-01-22] MEDS: chlordiazePOXIDE 5 MG CAPSULE PO SCH ×3 (05:54→16:57)
[2018-01-22] MEDS: METHADONE HCL 5 MG TABLET (FOR DETOX USE ONLY) PO SCH (10:11)
[2018-01-22] MEDS: PRENATAL VITAMINS W/ FOLIC ACID TABLET (FP) PO SCH (10:11)
[2018-01-22] MEDS: NICOTINE 21 MG/24 HOURS TOPICAL PATCH TD SCH (10:13)
--- NOTE | 2018-01-22 12:59 | PN ---
BHS Progress Note (SOAP) Subjective: Tremor, sweating, interrupted sleep Objective: 01/22/18 12:58 Last Vital Signs Temp Pulse Resp BP Pulse Ox 97.2 F L 78 18 112/59 L 01/22/18 09:24 01/22/18 09:24 01/22/18 09:24 01/22/18 09:24 Laboratory Tests 01/20/18 01/20/18 01/20/18 07:44 07:44 07:44 WBC 4.3 RBC 4.05 Hgb 12.1 Hct 35.9 MCV 88.6 MCH 30.0 MCHC 33.8 RDW 16.1 H Plt Count 246 D MPV 10.5 Sodium 141 Potassium 4.2 Chloride 110 H Carbon Dioxide 25 Anion Gap 6 L BUN 14 Creatinine 0.9 Creat Clearance w eGFR > 60 Random Glucose 69 L Calcium 7.9 L Total Bilirubin 0.3 AST 17 ALT 19 Alkaline Phosphatase 79 Total Protein 6.0 L Albumin 2.9 L RPR Titer Nonreactive Labs reviewed Assessment: 01/22/18 12:59 Withdrawal symptoms Plan: Continue detox Encouraged PO water intake
[2018-01-22] MEDS: NICOTINE POLACRILEX 4 MG GUM BC PRN (14:38)
[2018-01-22] MEDS: chlordiazePOXIDE HCL 10 MG CAPSULE PO SCH (22:26)
[2018-01-22] MEDS: THIAMINE HCL 100 MG TABLET (FP) PO SCH (22:26)
[2018-01-23] MEDS: NICOTINE POLACRILEX 4 MG GUM BC PRN ×3 (04:02→20:16)
[2018-01-23] MEDS: chlordiazePOXIDE HCL 10 MG CAPSULE PO SCH ×3 (05:39→16:38)
[2018-01-23] MEDS ORDERED: METHADONE HCL 10 MG TABLET (FOR DETOX USE ONLY) PO SCH (10:00)
[2018-01-23] MEDS: NICOTINE 21 MG/24 HOURS TOPICAL PATCH TD SCH (10:08)
[2018-01-23] MEDS: PRENATAL VITAMINS W/ FOLIC ACID TABLET (FP) PO SCH (10:08)
--- NOTE | 2018-01-23 12:25 | PN ---
BHS Progress Note (SOAP) Subjective: Chills, sweating, restless, interrupted sleep Objective: 01/23/18 12:22 Last Vital Signs Temp Pulse Resp BP Pulse Ox 97.1 F L 86 18 123/69 01/23/18 09:06 01/23/18 09:06 01/23/18 09:06 01/23/18 09:06 Laboratory Tests 01/20/18 01/20/18 01/20/18 07:44 07:44 07:44 WBC 4.3 RBC 4.05 Hgb 12.1 Hct 35.9 MCV 88.6 MCH 30.0 MCHC 33.8 RDW 16.1 H Plt Count 246 D MPV 10.5 Sodium 141 Potassium 4.2 Chloride 110 H Carbon Dioxide 25 Anion Gap 6 L BUN 14 Creatinine 0.9 Creat Clearance w eGFR > 60 Random Glucose 69 L Calcium 7.9 L Total Bilirubin 0.3 AST 17 ALT 19 Alkaline Phosphatase 79 Total Protein 6.0 L Albumin 2.9 L RPR Titer Nonreactive Labs reviewed Assessment: 01/23/18 12:23 Withdrawal symptoms Plan: Continue detox Encouraged PO water intake
[2018-01-23 15:51] LABS: URINE APPEARANCE CLEAR; URINE BILIRUBIN NEGATIVE (<2.0 mg/dL); URINE COLOR LTYELLOW; URINE GLUCOSE (UA) NEGATIVE (NEGATIVE); URINE KETONE NEGATIVE (NEGATIVE); URINE LEUK ESTERASE NEGATIVE (NEGATIVE); URINE NITRITE NEGATIVE (NEGATIVE); URINE PROTEIN NEGATIVE (NEGATIVE); URINE UROBILINOGEN NEGATIVE mg/dL (0.2-1.0)
[2018-01-23] MEDS: THIAMINE HCL 100 MG TABLET (FP) PO SCH (22:19)
[2018-01-23] MEDS: ZOLPIDEM TARTRATE 10 MG TABLET (PARK CARE ONLY) PO PRN (22:19)
[2018-01-24] MEDS ORDERED: METHADONE HCL 5 MG TABLET (FOR DETOX USE ONLY) PO SCH (06:00)
[2018-01-24 09:11] VITALS: BP 99/66; PULSE 87; TEMP 96.5
[2018-01-24] MEDS: PRENATAL VITAMINS W/ FOLIC ACID TABLET (FP) PO SCH (10:06)
[2018-01-24] MEDS: NICOTINE 21 MG/24 HOURS TOPICAL PATCH TD SCH (10:07)
--- NOTE | 2018-01-24 14:09 | DS ---
[facility] Detox Discharge Summary Admission Date: 01/19/18 Discharge Date: 01/24/18 - History Present History: Alcohol Dependence, Cannabis Dependence, Cocaine Dependence, Opioid Dependence Additional Comments: Detox stay uneventful. Patient is stable for discharge to inpatient rehab. Pertinent Past History: HIV - Physical Exam Results Vital Signs: Vital Signs Temperature 96.5 F L 01/24/18 09:10 Pulse Rate 87 01/24/18 09:10 Respiratory Rate 18 01/24/18 09:10 Blood Pressure 99/66 01/24/18 09:10 O2 Sat by Pulse Oximetry (%) Pertinent Admission Physical Exam Findings: Withdrawal sxs Laboratory Tests 01/20/18 01/20/18 01/20/18 07:44 07:44 07:44 WBC 4.3 RBC 4.05 Hgb 12.1 Hct 35.9 MCV 88.6 MCH 30.0 MCHC 33.8 RDW 16.1 H Plt Count 246 D MPV 10.5 Sodium 141 Potassium 4.2 Chloride 110 H Carbon Dioxide 25 Anion Gap 6 L BUN 14 Creatinine 0.9 Creat Clearance w eGFR > 60 Random Glucose 69 L Calcium 7.9 L Total Bilirubin 0.3 AST 17 ALT 19 Alkaline Phosphatase 79 Total Protein 6.0 L Albumin 2.9 L Urine Color Urine Appearance Urine pH Ur Specific [place] Urine Protein Urine Glucose (UA) Urine Ketones Urine Blood Urine Nitrite Urine Bilirubin Urine Urobilinogen Ur Leukocyte Esterase RPR Titer Nonreactive 01/22/18 10:30 WBC RBC Hgb Hct MCV MCH MCHC RDW Plt Count MPV Sodium Potassium Chloride Carbon Dioxide Anion Gap BUN Creatinine Creat Clearance w eGFR Random Glucose Calcium Total Bilirubin AST ALT Alkaline Phosphatase Total Protein Albumin Urine Color Lty[place] Urine Appearance Clear Urine pH 7.0 Ur Specific [place] 1.014 Urine Protein Negative Urine Glucose (UA) Negative Urine Ketones Negative Urine Blood Negative Urine Nitrite Negative Urine Bilirubin Negative Urine Urobilinogen Negative Ur Leukocyte Esterase Negative RPR Titer Labs reviewed - Treatment Hospital Course: Detox Protocol Followed, Detoxed Safely, Responded well, Discharged Condition Good, Rehab Referral Accepted - Medication Discharge Medications: Ambulatory Orders Ascorbic Acid [Vitamin C -] 500 mg PO DAILY 12/08/15 Estradiol Valerate [Delestrogen] 40 mg IM Q15D 12/08/15 Spironolactone [Aldactone] 100 mg PO TID 12/08/15 Vitamin E 100 unit PO DAILY 12/08/15 Emtricitab/Rilpivirine/Tenofov [Complera -] 1 each PO DAILY 08/09/17 - Diagnosis (1) Cannabis dependence Current Visit: Yes Status: Chronic (2) Cocaine dependence Current Visit: Yes Status: Chronic Qualifiers: Substance use status: uncomplicated Qualified Code(s): F14.20 - Cocaine dependence, uncomplicated (3) Opioid dependence with withdrawal Current Visit: Yes Status: Acute (4) Endocrine disorder in xoll-mo-gtbash transgender person Current Visit: Yes Status: Chronic (5) HIV disease Current Visit: Yes Status: Chronic (6) Nicotine dependence Current Visit: Yes Status: Chronic Qualifiers: Nicotine product type: cigarettes Substance use status: uncomplicated Qualified Code(s): F17.210 - Nicotine dependence, cigarettes, uncomplicated (7) Alcohol dependence with withdrawal Current Visit: Yes Status: Acute Qualifiers: Complication of substance-induced condition: uncomplicated Qualified Code(s ): F10.230 - Alcohol dependence with withdrawal, uncomplicated (8) Abnormal EKG Current Visit: Yes Status: Acute - AMA Did Patient Leave Against Medical Advice: No (Patient accepted to [facility])
== END 2018-01-24 12:25 | disposition home or self-care (01) | DRG 773 ==
LOC: YASAS 12:04 → Y3N 17:56
PROC: HZ2ZZZZ Detoxification Services for Substance Abuse Treatment (ICD-10-PCS; principal; 2018-01-19)
DX: F11.23 Opioid dependence with withdrawal (principal); F10.230 Alcohol dependence with withdrawal, uncomplicated; F14.20 Cocaine dependence, uncomplicated; F12.20 Cannabis dependence, uncomplicated; F17.210 Nicotine dependence, cigarettes, uncomplicated; F19.282 Other psychoactive substance dependence with psychoactive substance-induced sleep disorder; Z21 Asymptomatic human immunodeficiency virus [HIV] infection status; R94.31 Abnormal electrocardiogram [ECG] [EKG]; E03.9 Hypothyroidism, unspecified; F64.1 Dual role transvestism; D64.9 Anemia, unspecified; Z86.69 Personal history of other diseases of the nervous system and sense organs; Z87.891 Personal history of nicotine dependence; Z87.438 Personal history of other diseases of male genital organs
CPT/HCPCS: 36415; 80053; 81003; 85027; 86593; 93005; 93010

== ENCOUNTER 2018-02-18 11:51 | Inpatient (IN) | payer OTHER ==
[2018-02-18 12:42] VITALS: BMI 22.7
--- NOTE | 2018-02-18 16:38 | HP ---
CIWA Score Nausea/Vomitin Muscle Tremors: 2 Anxiety: 3 Agitation: 2 Paroxysmal Sweats: 2 Orientation: 0-Oriented Tacttile Disturbances: 3-Moderate Itch/Numb/Burn Auditory Disturbances: 0-None Visual Disturbances: 0-None Headache: 0-None Present CIWA-Ar Total Score: 15 - Admission Criteria OASAS Guidelines: Admission for Medically Managed Detox: Requires at least one of the followin. CIWA greater than 12 2. Seizures within the past 24 hours 3. Delirium tremens within the past 24 hours 4. Hallucinations within the past 24 hours 5. Acute intervention needed for co occurring medical disorder 6. Acute intervention needed for co occurring psychiatric disorder 7. Severe withdrawal that cannot be handled at a lower level of care (continued vomiting, continued diarrhea, abnormal vital signs) requiring intravenous medication and/or fluids 8. Admission ROS [facility] - [facility] Chief Complaint: ETOH WITHDRAWAL SYMPTOMS AND MARIJUANA/COCAINE DEPENDENCE. 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 PATIENT STATES HE ALSO INJECTS HEROIN, 2-3 BAGS DAILY, AND LAST TIME HE USED WAS 2 DAYS AGO. UDS +THC, DON, CRACK. PATIENT ALSO DRINKS 1-2 PINTS OF VODKA DAILY, STARTED DRINKING AT AGE [age]. LAST DRINK WAS THIS MORNING. PATIENT ALSO SNIFFS COCAINE, 100 DOLLARS DAILY SINCE AGE 16. +MARIJUANA USE, 3-4 10 DOLLAR BAGS/DAY. LAST TIME HE SMOKED WAS YESTERDAY. PATIENT HAS HAD MULTIPLE ADMISSIONS TO DETOX THIS YEAR. LAST DETOX WAS HERE AT [facility] LAST MONTH. + HX OF FALLS, DENIES OVERDOSE, SEIZURES. PMH INCLUDES HIV, SINCE 1999. NONCOMPLIANT WITH MEDICATION. LAST DOSE OF GEMVOYA 2 MONTHS AGO. +H/O DEPRESSION, DENIES SI/ HI AND SUICIDE ATTEMPTS. Exam Limitations: No Limitations - Ebola screening Have you traveled outside of the country in the last 21 days: No Have you had contact with anyone from an Ebola affected area: No Have you been sick,other than usual withdrawal symptoms: No Do you have a fever: No - Review of Systems Constitutional: Chills, Night Sweats, Changes in sleep, Unexplained wgt Loss EENT: reports: Nose Congestion Respiratory: reports: No Symptoms reported Cardiac: reports: Palpitations GI: reports: Diarrhea, Nausea, Poor Appetite, Poor Fluid Intake, Abdominal cramping : reports: No Symptoms Reported Musculoskeletal: reports: Back Pain, Muscle Pain Integumentary: reports: Sweating Neuro: reports: Numbness, Tingling, Tremors Endocrine: reports: Unexplained Weight Loss Hematology: reports: No Symptoms Reported Psychiatric: reports: Orientated x3, Depressed Patient History - Patient Medical History Hx Anemia: Yes Hx Asthma: No Hx Chronic Obstructive Pulmonary Disease (COPD): No Hx Cancer: No Hx Cardiac Disorders: No Hx Congestive Heart Failure: No Hx Hypertension: No Hx Hypercholesterolemia: No Hx Pacemaker: No HX Cerebrovascular Accident: No Hx Seizures: Yes (K-2 INDUCED ON 2013) Hx Dementia: No Hx Diabetes: No Hx Gastrointestinal Disorders: No Hx Liver Disease: No Hx Genitourinary Disorders: No Hx Sexually Transmitted Disorders: Yes (syphillis) Hx Renal Disease (ESRD): No Hx Thyroid Disease: No Hx Human Immunodeficiency Virus (HIV): Yes (since 07/14/1999, reports having taken his meds in a wk and not with him) Hx Hepatitis C: No Hx Depression: Yes (not on meds) Hx Suicide Attempt: No (Denies Curent) Hx Bipolar Disorder: No Hx Schizophrenia: No - Patient Surgical History Past Surgical History: No Hx Neurologic Surgery: No Hx Cataract Extraction: No Hx Cardiac Surgery: No Hx Lung Surgery: No Hx Breast Surgery: No Hx Breast Biopsy: No Hx Abdominal Surgery: No Hx Appendectomy: No Hx Cholecystectomy: No Hx Genitourinary Surgery: No Hx Orthopedic Surgery: No Anesthesia Reaction: No - PPD History Previous Implant?: Yes Documented Results: Negative w/proof Date: 10/24/17 PPD to be Administered?: No - Smoking Cessation Smoking history: Current every day smoker Have you smoked in the past 12 months: Yes Aproximately how many cigarettes per day: 40 Cigars Per Day: 0 Hx Chewing Tobacco Use: No Initiated information on smoking cessation: Yes 'Breaking Loose' booklet given: 02/18/18 - Substance & Tx. History Hx Alcohol Use: Yes Hx Substance Use: Yes Substance Use Type: Alcohol, Cocaine, Heroin, Marijuana Hx Substance Use Treatment: Yes Family Disease History - Family Disease History Family Disease History: Diabetes: Grandparent, Sister Admission Physical Exam [facility] - Vital Signs Vital Signs: Vital Signs - 24 hr 02/18/18 12:40 Temperature 98.2 F Pulse Rate 91 H Respiratory 20 Rate Blood Pressure 141/79 - Physical General Appearance: Yes: Disheveled, Thin, Tremorous, Sweating HEENTM: Yes: EOMI, Hearing grossly Normal, Normocephalic, Normal Voice, KOURTNEY, Pharynx Normal, Nasal Congestion Respiratory: Yes: Chest Non-Tender, Lungs Clear, Normal Breath Sounds, No Respiratory Distress, No Accessory Muscle Use Neck: Yes: No masses,lesions,Nodules, Supple Breast: Yes: Breast Exam Deferred Cardiology: Yes: Regular Rhythm, Regular Rate, S1, S2 Abdominal: Yes: Normal Bowel Sounds, Non Tender, Flat, Soft Genitourinary: Yes: Within Normal Limits Back: Yes: Normal Inspection, Muscle Spasm Musculoskeletal: Yes: full range of Motion, Gait Steady, Back pain, Muscle Pain Extremities: Yes: Normal Inspection, Normal Range of Motion, Non-Tender, Tremors Neurological: Yes: recruitment advertising manager II-XII NML intact, Fully Oriented, Alert, Motor Strength 5/5, Normal Response, Depressed Affect Integumentary: Yes: Normal Color, Warm, Track Henriquez Lymphatic: Yes: Within Normal Limits - Diagnostic (1) Alcohol dependence with withdrawal Current Visit: Yes Status: Acute Qualifiers: Complication of substance-induced condition: uncomplicated Qualified Code(s ): F10.230 - Alcohol dependence with withdrawal, uncomplicated (2) Cocaine dependence in controlled environment Current Visit: Yes Status: Chronic (3) Heroin use disorder, moderate Current Visit: Yes Status: Suspected (4) Cannabis dependence Current Visit: Yes Status: Chronic (5) HIV disease Current Visit: No Status: Chronic Comment: currently not on meds (6) Nicotine dependence Current Visit: No Status: Chronic Qualifiers: Nicotine product type: cigarettes Substance use status: uncomplicated Qualified Code(s): F17.210 - Nicotine dependence, cigarettes, uncomplicated (7) Weight loss Current Visit: Yes Status: Acute Cleared for Admission [facility] - Detox or Rehab [facility] Level of Care: Medically Managed Detox Regimen/Protocol: Librium [facility] Breath Alcohol Content Breath Alcohol Content: 0 Urine Drug Screen - Results Drug Screen Negative: No Urine Drug Screen Results: THC-Marijuana, DON-Cocaine, BZO-Benzodiazepines
[2018-02-18] MEDS ORDERED: hydrOXYzine PAMOATE 50 MG CAPSULE (FP) PO PRN (16:46)
[2018-02-18] MEDS ORDERED: IBUPROFEN 400 MG TABLET (FP) PO PRN (16:46)
[2018-02-18] MEDS ORDERED: MAGNESIUM CITRATE 300 ML BOTTLE PO PRN (16:46)
[2018-02-18] MEDS ORDERED: NICOTINE POLACRILEX 2 MG GUM BC PRN (16:46)
[2018-02-18] MEDS ORDERED: P-EPHED 60MG/TRIPROLIDI 2.5MG TABLET PO PRN (16:46)
[2018-02-18] MEDS ORDERED: LOPERAMIDE HCL 2 MG CAPSULE PO PRN (16:46)
[2018-02-18] MEDS ORDERED: guaiFENesin/D-METHORPHAN HB 10 ML UNIT-DOSE CUPS PO PRN (16:46)
[2018-02-18] MEDS ORDERED: ACETAMINOPHEN 325 MG TABLET (FP) PO PRN (16:46)
[2018-02-18] MEDS ORDERED: MENTHOL/PHENOL 1 EACH UD MM PRN (16:46)
[2018-02-18] MEDS ORDERED: MAGNESIUM HYDROX 2400MG/30ML ORAL SUSPENSION 30 ML CUP PO PRN (16:46)
[2018-02-18] MEDS ORDERED: MAG HYDROX/AL HYDROX/SIMETH 30 ML UNIT-DOSE CUP PO PRN (16:46)
[2018-02-18] MEDS ORDERED: chlordiazePOXIDE HCL 25 MG CAPSULE PO PRN (16:47)
[2018-02-18] MEDS ORDERED: MELATONIN 5 MG TABLETS PO PRN (22:00)
[2018-02-18] MEDS: THIAMINE HCL 100 MG TABLET (FP) PO SCH (22:16)
[2018-02-18] MEDS: chlordiazePOXIDE HCL 25 MG CAPSULE PO SCH (22:16)
[2018-02-19] MEDS: chlordiazePOXIDE HCL 25 MG CAPSULE PO SCH ×4 (05:50→22:18)
[2018-02-19 09:58] LABS: HEMATOCRIT 42.7 % (35.4-49); HEMOGLOBIN 13.3 GM/dL (11.7-16.9); MCH 27.9 pg (25.7-33.7); MCHC 31.1 g/dl (32.0-35.9); MEAN CELL VOLUME 89.5 fl (80-96); MEAN PLT VOLUME 10.7 fl (7.5-11.1); PLATELET COUNT 191 K/MM3 (134-434); RBC 4.77 M/mm3 (4.00-5.60); RDW 15.9 % (11.9-15.9); WHITE BLOOD COUNT 4.5 K/mm3 (4.0-10.0)
[2018-02-19] MEDS: PRENATAL VITAMINS W/ FOLIC ACID TABLET (FP) PO SCH (10:22)
[2018-02-19] MEDS: NICOTINE 21 MG/24 HOURS TOPICAL PATCH TD SCH (10:23)
[2018-02-19 10:49] LABS: ALK PHOS 76 U/L (45-117); ANION GAP 10 MMOL/L (8-16); BILIRUBIN,TOTAL 0.8 mg/dL (0.2-1); BLOOD UREA NITROGEN 14 mg/dL (7-18); CALCIUM 7.9 mg/dL (8.5-10.1); CHLORIDE 108 mmol/L (98-107); CO2 23 mmol/L (21-32); CREATININE 0.9 mg/dL (0.55-1.3); GLUCOSE,RANDOM 80 mg/dL (74-106); POTASSIUM 4.4 mmol/L (3.5-5.1); SGOT/AST 19 U/L (15-37); SGPT/ALT 25 U/L (13-61); SODIUM 140 mmol/L (136-145); TOT PROT 6.5 g/dl (6.4-8.2)
--- NOTE | 2018-02-19 10:54 | PN ---
S CIWA - CIWA Score Nausea/Vomitin-Mild Nausea/No Vomiting Muscle Tremors: 3 Anxiety: 2 Agitation: 2 Paroxysmal Sweats: 1-Minimal Palms Moist Orientation: 1-Uncertain about Date Tacttile Disturbances: 1-Very Mild Itch/Numbness Auditory Disturbances: 1-Very Mild Visual Disturbances: 0-None Headache: 1-Very Mild CIWA-Ar Total Score: 13 BHS Progress Note (SOAP) Subjective: tremor sweat anxiety restlessness gi distress Objective: 02/19/18 10:54 Vital Signs Temperature 97.2 F L 02/19/18 07:53 Pulse Rate 72 02/19/18 07:53 Respiratory Rate 18 02/19/18 07:53 Blood Pressure 122/73 02/19/18 07:53 O2 Sat by Pulse Oximetry (%) Laboratory Last Values WBC 4.5 K/mm3 (4.0-10.0) 02/19/18 07:00 RBC 4.77 M/mm3 (4.00-5.60) 02/19/18 07:00 Hgb 13.3 GM/dL (11.7-16.9) 02/19/18 07:00 Hct 42.7 % (35.4-49) D 02/19/18 07:00 MCV 89.5 fl (80-96) 02/19/18 07:00 MCH 27.9 pg (25.7-33.7) 02/19/18 07:00 MCHC 31.1 g/dl (32.0-35.9) L 02/19/18 07:00 RDW 15.9 % (11.9-15.9) 02/19/18 07:00 Plt Count 191 K/MM3 (134-434) D 02/19/18 07:00 MPV 10.7 fl (7.5-11.1) 02/19/18 07:00 Sodium 140 mmol/L (136-145) 02/19/18 07:00 Potassium 4.4 mmol/L (3.5-5.1) 02/19/18 07:00 Chloride 108 mmol/L (98-107) H 02/19/18 07:00 Carbon Dioxide 23 mmol/L (21-32) 02/19/18 07:00 Anion Gap 10 MMOL/L (8-16) 02/19/18 07:00 BUN 14 mg/dL (7-18) 02/19/18 07:00 Creatinine 0.9 mg/dL (0.55-1.3) 02/19/18 07:00 Creat Clearance w eGFR > 60 (>60) 02/19/18 07:00 Random Glucose 80 mg/dL (74-106) 02/19/18 07:00 Calcium 7.9 mg/dL (8.5-10.1) L 02/19/18 07:00 Total Bilirubin 0.8 mg/dL (0.2-1) 02/19/18 07:00 AST 19 U/L (15-37) 02/19/18 07:00 ALT 25 U/L (13-61) 02/19/18 07:00 Alkaline Phosphatase 76 U/L (45-117) 02/19/18 07:00 Total Protein 6.5 g/dl (6.4-8.2) 02/19/18 07:00 Albumin 3.0 g/dl (3.4-5.0) L 02/19/18 07:00 lab noted low Ca++ Assessment: 02/19/18 10:55 alcohol withdrawal sx hypocalcemia Plan: continue alcohol detox oscal ca++ supplement
[2018-02-19] MEDS: CALCIUM 250MG/VIT-D 125 UNITS 1 COMBO TABLET PO SCH ×2 (12:30→22:17)
[2018-02-19] MEDS: THIAMINE HCL 100 MG TABLET (FP) PO SCH (22:17)
[2018-02-20] MEDS: chlordiazePOXIDE HCL 25 MG CAPSULE PO SCH ×3 (06:25→17:53)
[2018-02-20] MEDS: PRENATAL VITAMINS W/ FOLIC ACID TABLET (FP) PO SCH (10:49)
[2018-02-20] MEDS: CALCIUM 250MG/VIT-D 125 UNITS 1 COMBO TABLET PO SCH ×2 (10:50→22:41)
[2018-02-20] MEDS: NICOTINE 21 MG/24 HOURS TOPICAL PATCH TD SCH (10:50)
--- NOTE | 2018-02-20 12:31 | PN ---
S CIWA - CIWA Score Nausea/Vomitin-Mild Nausea/No Vomiting Muscle Tremors: 2 Anxiety: 2 Agitation: 1-Slight > Activity Paroxysmal Sweats: 1-Minimal Palms Moist Orientation: 0-Oriented Tacttile Disturbances: 0-None Auditory Disturbances: 0-None Visual Disturbances: 0-None Headache: 1-Very Mild CIWA-Ar Total Score: 8 BHS Progress Note (SOAP) Subjective: tremor sweat anxiety trouble sleep at night Objective: 02/20/18 12:35 Vital Signs Temperature 97.8 F 02/20/18 09:35 Pulse Rate 71 02/20/18 09:35 Respiratory Rate 18 02/20/18 09:35 Blood Pressure 107/67 02/20/18 09:35 O2 Sat by Pulse Oximetry (%) Laboratory Last Values WBC 4.5 K/mm3 (4.0-10.0) 02/19/18 07:00 RBC 4.77 M/mm3 (4.00-5.60) 02/19/18 07:00 Hgb 13.3 GM/dL (11.7-16.9) 02/19/18 07:00 Hct 42.7 % (35.4-49) D 02/19/18 07:00 MCV 89.5 fl (80-96) 02/19/18 07:00 MCH 27.9 pg (25.7-33.7) 02/19/18 07:00 MCHC 31.1 g/dl (32.0-35.9) L 02/19/18 07:00 RDW 15.9 % (11.9-15.9) 02/19/18 07:00 Plt Count 191 K/MM3 (134-434) D 02/19/18 07:00 MPV 10.7 fl (7.5-11.1) 02/19/18 07:00 Sodium 140 mmol/L (136-145) 02/19/18 07:00 Potassium 4.4 mmol/L (3.5-5.1) 02/19/18 07:00 Chloride 108 mmol/L (98-107) H 02/19/18 07:00 Carbon Dioxide 23 mmol/L (21-32) 02/19/18 07:00 Anion Gap 10 MMOL/L (8-16) 02/19/18 07:00 BUN 14 mg/dL (7-18) 02/19/18 07:00 Creatinine 0.9 mg/dL (0.55-1.3) 02/19/18 07:00 Creat Clearance w eGFR > 60 (>60) 02/19/18 07:00 Random Glucose 80 mg/dL (74-106) 02/19/18 07:00 Calcium 7.9 mg/dL (8.5-10.1) L 02/19/18 07:00 Total Bilirubin 0.8 mg/dL (0.2-1) 02/19/18 07:00 AST 19 U/L (15-37) 02/19/18 07:00 ALT 25 U/L (13-61) 02/19/18 07:00 Alkaline Phosphatase 76 U/L (45-117) 02/19/18 07:00 Total Protein 6.5 g/dl (6.4-8.2) 02/19/18 07:00 Albumin 3.0 g/dl (3.4-5.0) L 02/19/18 07:00 RPR Titer Nonreactive (NONREACTIVE) 02/19/18 07:00 lab noted low ca++ Assessment: 02/20/18 12:36 withdrawal sx Plan: continue detox ca++ rich food with supplement
[2018-02-20] MEDS: chlordiazePOXIDE 5 MG CAPSULE PO SCH (22:41)
[2018-02-20] MEDS: THIAMINE HCL 100 MG TABLET (FP) PO SCH (22:41)
[2018-02-21] MEDS: chlordiazePOXIDE 5 MG CAPSULE PO SCH ×2 (07:49→10:36)
[2018-02-21 08:59] VITALS: BP 111/59; PULSE 67; TEMP 97.5
[2018-02-21] MEDS: PRENATAL VITAMINS W/ FOLIC ACID TABLET (FP) PO SCH (10:36)
[2018-02-21] MEDS: CALCIUM 250MG/VIT-D 125 UNITS 1 COMBO TABLET PO SCH (10:36)
[2018-02-21] MEDS: NICOTINE 21 MG/24 HOURS TOPICAL PATCH TD SCH (10:36)
--- NOTE | 2018-02-21 11:42 | PN ---
BHS Progress Note (SOAP) Subjective: feeling better no tremor less sweat sleep better at night Objective: 02/21/18 11:41 Vital Signs Temperature 97.5 F L 02/21/18 08:58 Pulse Rate 67 02/21/18 08:58 Respiratory Rate 18 02/21/18 08:58 Blood Pressure 111/59 L 02/21/18 08:58 O2 Sat by Pulse Oximetry (%) Laboratory Last Values WBC 4.5 K/mm3 (4.0-10.0) 02/19/18 07:00 RBC 4.77 M/mm3 (4.00-5.60) 02/19/18 07:00 Hgb 13.3 GM/dL (11.7-16.9) 02/19/18 07:00 Hct 42.7 % (35.4-49) D 02/19/18 07:00 MCV 89.5 fl (80-96) 02/19/18 07:00 MCH 27.9 pg (25.7-33.7) 02/19/18 07:00 MCHC 31.1 g/dl (32.0-35.9) L 02/19/18 07:00 RDW 15.9 % (11.9-15.9) 02/19/18 07:00 Plt Count 191 K/MM3 (134-434) D 02/19/18 07:00 MPV 10.7 fl (7.5-11.1) 02/19/18 07:00 Sodium 140 mmol/L (136-145) 02/19/18 07:00 Potassium 4.4 mmol/L (3.5-5.1) 02/19/18 07:00 Chloride 108 mmol/L (98-107) H 02/19/18 07:00 Carbon Dioxide 23 mmol/L (21-32) 02/19/18 07:00 Anion Gap 10 MMOL/L (8-16) 02/19/18 07:00 BUN 14 mg/dL (7-18) 02/19/18 07:00 Creatinine 0.9 mg/dL (0.55-1.3) 02/19/18 07:00 Creat Clearance w eGFR > 60 (>60) 02/19/18 07:00 Random Glucose 80 mg/dL (74-106) 02/19/18 07:00 Calcium 7.9 mg/dL (8.5-10.1) L 02/19/18 07:00 Total Bilirubin 0.8 mg/dL (0.2-1) 02/19/18 07:00 AST 19 U/L (15-37) 02/19/18 07:00 ALT 25 U/L (13-61) 02/19/18 07:00 Alkaline Phosphatase 76 U/L (45-117) 02/19/18 07:00 Total Protein 6.5 g/dl (6.4-8.2) 02/19/18 07:00 Albumin 3.0 g/dl (3.4-5.0) L 02/19/18 07:00 RPR Titer Nonreactive (NONREACTIVE) 02/19/18 07:00 lab noted low ca++ Assessment: 02/21/18 11:41 mild withdrawal sx Plan: medically supervised detox
[2018-02-21] MEDS ORDERED: chlordiazePOXIDE HCL 10 MG CAPSULE PO SCH (23:00)
== END 2018-02-21 13:35 | disposition home or self-care (01) | DRG 773 ==
LOC: YASAS 11:51 → Y6N 17:38
PROC: HZ2ZZZZ Detoxification Services for Substance Abuse Treatment (ICD-10-PCS; principal; 2018-02-18)
DX: F10.230 Alcohol dependence with withdrawal, uncomplicated (principal); F11.20 Opioid dependence, uncomplicated; F14.20 Cocaine dependence, uncomplicated; F12.20 Cannabis dependence, uncomplicated; F17.210 Nicotine dependence, cigarettes, uncomplicated; F32.9 Major depressive disorder, single episode, unspecified; B20 Human immunodeficiency virus [HIV] disease; D64.9 Anemia, unspecified; E83.51 Hypocalcemia; R63.4 Abnormal weight loss; Z68.22 Body mass index [BMI] 22.0-22.9, adult; Z91.81 History of falling; Z86.19 Personal history of other infectious and parasitic diseases; Z86.69 Personal history of other diseases of the nervous system and sense organs
CPT/HCPCS: 36415; 80053; 85027; 86593

== ENCOUNTER 2018-05-02 13:58 | Inpatient (IN) | payer OTHER ==
--- NOTE | 2018-05-02 16:11 | HP ---
CIWA Score Nausea/Vomitin-No Nausea/No Vomiting Muscle Tremors: 2 Anxiety: 4-Mod. Anxious/Guarded Agitation: 3 Paroxysmal Sweats: 2 Orientation: 0-Oriented Tacttile Disturbances: 2-Mild Itch/Numbness/Burn (finger tips and both feet) Auditory Disturbances: 0-None Visual Disturbances: 0-None Headache: 0-None Present CIWA-Ar Total Score: 13 - Admission Criteria OASAS Guidelines: Admission for Medically Managed Detox: Requires at least one of the followin. CIWA greater than 12 2. Seizures within the past 24 hours 3. Delirium tremens within the past 24 hours 4. Hallucinations within the past 24 hours 5. Acute intervention needed for co occurring medical disorder 6. Acute intervention needed for co occurring psychiatric disorder 7. Severe withdrawal that cannot be handled at a lower level of care (continued vomiting, continued diarrhea, abnormal vital signs) requiring intravenous medication and/or fluids 8. Patient presents the following: CIWA greater than 12 Admission Criteria Met: Admission criteria met Admission ROS [facility] - [facility] Chief Complaint: " detox" Allergies/Adverse Reactions: Allergies Allergy/AdvReac Type Severity Reaction Status Date / Time avocado Allergy Verified 02/18/18 16:28 melon Allergy Verified 02/18/18 16:28 No Known Drug Allergies Allergy Verified 02/18/18 17:19 honeydew Allergy Uncoded 02/18/18 16:28 History of Present Illness: Patient is a transgender male presents for detox d/t alcohol withdrawal. Cocaine dependence, klonopin / xanax, and marijuana dependence is here seeing detox Reports occasional IV heroin, Reports multiple admissions to detox last detox tx at [facility] early March 2018. PMHX: HIV since 2009, non-compliant Denies suicidal / homicidal ideation or hx of suicide attempts Exam Limitations: No Limitations - Ebola screening Have you traveled outside of the country in the last 21 days: No Have you had contact with anyone from an Ebola affected area: No Do you have a fever: No - Review of Systems Constitutional: Chills, Diaphoresis, Loss of Appetite, Changes in sleep, Weakness, Unintentional Wgt. Loss (15 lbs) EENT: reports: No Symptoms Reported Respiratory: reports: No Symptoms reported Cardiac: reports: No Symptoms Reported GI: reports: Constipated, Diarrhea, Nausea, Poor Appetite, Poor Fluid Intake, Abdominal cramping, Other (gas) : reports: No Symptoms Reported Musculoskeletal: reports: Other (b/t hands) Integumentary: reports: See HPI (scar on left hand from healed wound) Neuro: reports: Weakness, Dizziness Endocrine: reports: Increased Thirst Hematology: reports: See HPI, Anemia Psychiatric: reports: Orientated x3, Anxious Other Systems: Reviewed and Negative Patient History - Patient Medical History Hx Anemia: Yes Hx Asthma: No Hx Chronic Obstructive Pulmonary Disease (COPD): No Hx Cancer: No Hx Cardiac Disorders: No Hx Congestive Heart Failure: No Hx Hypertension: No Hx Hypercholesterolemia: No Hx Pacemaker: No HX Cerebrovascular Accident: No Hx Seizures: Yes (K-2 INDUCED ON 2013) Hx Dementia: No Hx Diabetes: No Hx Gastrointestinal Disorders: No Hx Liver Disease: No Hx Genitourinary Disorders: No Hx Sexually Transmitted Disorders: Yes (syphillis) Hx Renal Disease (ESRD): No Hx Thyroid Disease: No Hx Human Immunodeficiency Virus (HIV): Yes (since 07/14/1999, reports having taken his meds in a wk and not with him) Hx Hepatitis C: No Hx Depression: Yes (not on meds) Hx Suicide Attempt: No (Denies Curent) Hx Bipolar Disorder: No Hx Schizophrenia: No - Patient Surgical History Past Surgical History: No Hx Neurologic Surgery: No Hx Cataract Extraction: No Hx Cardiac Surgery: No Hx Lung Surgery: No Hx Breast Surgery: No Hx Breast Biopsy: No Hx Abdominal Surgery: No Hx Appendectomy: No Hx Cholecystectomy: No Hx Genitourinary Surgery: No Hx Section: No Hx Orthopedic Surgery: No Other Surgical History: I and D L middle finger 10/03 Anesthesia Reaction: No - PPD History Documented Results: Negative w/proof Date: 10/24/17 Results: 0 mm PPD to be Administered?: No - Smoking Cessation Smoking history: Current every day smoker Have you smoked in the past 12 months: Yes Aproximately how many cigarettes per day: 40 Cigars Per Day: 0 Hx Chewing Tobacco Use: No Initiated information on smoking cessation: Yes 'Breaking Loose' booklet given: 05/02/18 - Substance & Tx. History Hx Alcohol Use: Yes Hx Substance Use: Yes Substance Use Type: Alcohol Hx Substance Use Treatment: Yes ([facility] early Mar 2018) - Substances Abused alcohol Route: Oral Frequency: Daily Amount used: 4 pints + six pack beer Age of first use: 9 Date of Last Use: 05/02/18 crack Route: Smoking Frequency: Daily Amount used: 3 gram Age of first use: 16 Date of Last Use: 05/02/18 marijuana Route: Smoking Frequency: Daily Amount used: $10 Age of first use: 13 Date of Last Use: 05/02/18 Family Disease History - Family Disease History Family Disease History: Diabetes: Grandparent, Sister Admission Physical Exam [facility] - Physical General Appearance: Yes: Disheveled, Mild Distress, Thin, Sweating, Anxious HEENTM: Yes: EOMI, Hearing grossly Normal, Normal ENT Inspection, Normocephalic , Normal Voice, KOURTNEY, Pharynx Normal, Tm's normal Respiratory: Yes: Chest Non-Tender, Lungs Clear, Normal Breath Sounds, No Respiratory Distress, No Accessory Muscle Use Neck: Yes: Within Normal Limits Breast: Yes: Breast Exam Deferred Cardiology: Yes: Regular Rhythm, Tachycardia Abdominal: Yes: Normal Bowel Sounds, Non Tender, Flat, Soft Genitourinary: Yes: Within Normal Limits Back: Yes: Normal Inspection Musculoskeletal: Yes: full range of Motion, Gait Steady, Pelvis Stable Extremities: Yes: Normal Capillary Refill, Normal Inspection, Normal Range of Motion Neurological: Yes: registered nurse float pool II-XII NML intact, Motor Strength 5/5, Depressed Affect Integumentary: Yes: Normal Color, Warm, Diaphoresis, Track Henriquez (b/t anticubital fossa, no infection, scar on w/ callus on the left hand) Lymphatic: Yes: Within Normal Limits - Addiitonal Findings: Patient encourage to follow up with PCP regarding chronic conditions listed upon discharge. Patient verbalizes understanding. - Diagnostic (1) Opioid dependence Current Visit: Yes Status: Acute Qualifiers: Substance use status: uncomplicated Qualified Code(s): F11.20 - Opioid dependence, uncomplicated (2) [id number] transgender person Current Visit: Yes Status: Chronic (3) Alcohol dependence with withdrawal Current Visit: Yes Status: Acute Qualifiers: Complication of substance-induced condition: uncomplicated Qualified Code(s ): F10.230 - Alcohol dependence with withdrawal, uncomplicated (4) Weight loss Current Visit: Yes Status: Acute (5) Anemia Current Visit: Yes Status: Chronic Qualifiers: Anemia type: unspecified type Qualified Code(s): D64.9 - Anemia, unspecified (6) Cannabis dependence Current Visit: Yes Status: Chronic (7) Cocaine dependence Current Visit: Yes Status: Chronic Qualifiers: Substance use status: uncomplicated Qualified Code(s): F14.20 - Cocaine dependence, uncomplicated (8) HIV disease Current Visit: Yes Status: Chronic Comment: currently not on meds (9) Nicotine dependence Current Visit: Yes Status: Chronic Qualifiers: Nicotine product type: cigarettes Substance use status: uncomplicated Qualified Code(s): F17.210 - Nicotine dependence, cigarettes, uncomplicated (10) IVDU (intravenous drug user) Current Visit: Yes Status: Acute (11) Borderline elevation of pulse rate determined by examination Current Visit: Yes Status: Acute (12) At risk for dehydration due to poor fluid intake Current Visit: Yes Status: Acute Cleared for Admission S - Detox or Rehab [facility] Level of Care: Medically Managed Detox Regimen/Protocol: Librium [facility] Breath Alcohol Content Breath Alcohol Content: 0 Inpatient Rehab Admission - Rehab Decision to Admit Inpatient rehab admission?: No
[2018-05-02] MEDS ORDERED: IBUPROFEN 400 MG TABLET (FP) PO PRN (19:50)
[2018-05-02] MEDS ORDERED: chlordiazePOXIDE HCL 25 MG CAPSULE PO PRN (19:50)
[2018-05-02] MEDS ORDERED: P-EPHED 60MG/TRIPROLIDI 2.5MG TABLET PO PRN (19:50)
[2018-05-02] MEDS ORDERED: MENTHOL/PHENOL 1 EACH UD MM PRN (19:50)
[2018-05-02] MEDS ORDERED: MAGNESIUM HYDROX 2400MG/30ML ORAL SUSPENSION 30 ML CUP PO PRN (19:50)
[2018-05-02] MEDS ORDERED: MAG HYDROX/AL HYDROX/SIMETH 30 ML UNIT-DOSE CUP PO PRN (19:50)
[2018-05-02] MEDS ORDERED: guaiFENesin/D-METHORPHAN HB 10 ML UNIT-DOSE CUPS PO PRN (19:50)
[2018-05-02] MEDS ORDERED: MAGNESIUM CITRATE 300 ML BOTTLE PO PRN (19:50)
[2018-05-02] MEDS ORDERED: NICOTINE POLACRILEX 2 MG GUM BC PRN (19:50)
[2018-05-02] MEDS ORDERED: LOPERAMIDE HCL 2 MG CAPSULE PO PRN (19:50)
[2018-05-02] MEDS ORDERED: hydrOXYzine PAMOATE 50 MG CAPSULE (FP) PO PRN (19:50)
[2018-05-02] MEDS ORDERED: ACETAMINOPHEN 325 MG TABLET (FP) PO PRN (19:50)
[2018-05-02] MEDS ORDERED: MELATONIN 5 MG TABLETS PO PRN (22:00)
[2018-05-02] MEDS: THIAMINE HCL 100 MG TABLET (FP) PO SCH (22:15)
[2018-05-02] MEDS: chlordiazePOXIDE HCL 25 MG CAPSULE PO SCH (22:15)
[2018-05-03] MEDS: chlordiazePOXIDE HCL 25 MG CAPSULE PO SCH ×4 (05:48→22:10)
[2018-05-03] MEDS: PRENATAL VITAMINS W/ FOLIC ACID TABLET (FP) PO SCH (10:17)
[2018-05-03] MEDS: NICOTINE 14 MG/24 HOURS TOPICAL PATCH TD SCH (10:19)
[2018-05-03 11:24] LABS: HEMATOCRIT 40.9 % (35.4-49); HEMOGLOBIN 13.6 GM/dL (11.7-16.9); MCH 28.6 pg (25.7-33.7); MCHC 33.2 g/dl (32.0-35.9); MEAN CELL VOLUME 86.2 fl (80-96); MEAN PLT VOLUME 9.7 fl (7.5-11.1); PLATELET COUNT 355 K/MM3 (134-434); RBC 4.74 M/mm3 (4.00-5.60); RDW 14.1 % (11.9-15.9); WHITE BLOOD COUNT 6.6 K/mm3 (4.0-10.0)
[2018-05-03 12:21] LABS: ALBUMIN 2.7 g/dl (3.4-5.0); ALK PHOS 77 U/L (45-117); ANION GAP 6 MMOL/L (8-16); BILIRUBIN,TOTAL 0.5 mg/dL (0.2-1); BLOOD UREA NITROGEN 14 mg/dL (7-18); CALCIUM 8.5 mg/dL (8.5-10.1); CHLORIDE 109 mmol/L (98-107); CO2 26 mmol/L (21-32); GLUCOSE,RANDOM 125 mg/dL (74-106); POTASSIUM 3.8 mmol/L (3.5-5.1); SGOT/AST 17 U/L (15-37); SGPT/ALT 22 U/L (13-61); SODIUM 140 mmol/L (136-145); TOT PROT 6.7 g/dl (6.4-8.2)
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
--- NOTE | 2018-05-03 17:37 | PN ---
S CIWA - CIWA Score Nausea/Vomitin-No Nausea/No Vomiting Muscle Tremors: 3 Anxiety: 2 Agitation: 0-Normal Activity Paroxysmal Sweats: 3 Orientation: 0-Oriented Tacttile Disturbances: 2-Mild Itch/Numbness/Burn Auditory Disturbances: 2-Mild Harshness/Frighten Visual Disturbances: 0-None Headache: 0-None Present CIWA-Ar Total Score: 12 BHS Progress Note (SOAP) Subjective: Tremors, Fatigue, Sweating, Diarrhea. Objective: PATIENT A & O X 3, OBSERVED AMBULATING ON UNIT. IN NO ACUTE DISTRESS. 05/03/18 17:36 Vital Signs Temperature 97.1 F L 05/03/18 13:40 Pulse Rate 87 05/03/18 13:40 Respiratory Rate 18 05/03/18 13:40 Blood Pressure 114/65 05/03/18 13:40 O2 Sat by Pulse Oximetry (%) Laboratory Tests 05/03/18 05/03/18 05/03/18 07:00 07:00 07:00 WBC 6.6 RBC 4.74 Hgb 13.6 Hct 40.9 MCV 86.2 MCH 28.6 MCHC 33.2 RDW 14.1 D Plt Count 355 D MPV 9.7 Sodium 140 Potassium 3.8 Chloride 109 H Carbon Dioxide 26 Anion Gap 6 L BUN 14 Creatinine 1.0 Creat Clearance w eGFR > 60 Random Glucose 125 H Calcium 8.5 Total Bilirubin 0.5 AST 17 ALT 22 Alkaline Phosphatase 77 Total Protein 6.7 Albumin 2.7 L RPR Titer Nonreactive LABS NOTED. Assessment: 05/03/18 17:37 WITHDRAWAL SYMPTOMS. Plan: CONTINUE DETOX. INCREASE DAILY PO FLUID INTAKE. PRN IMMODIUM PO FOR DIARRHEA.
[2018-05-03] MEDS: THIAMINE HCL 100 MG TABLET (FP) PO SCH (22:11)
[2018-05-04] MEDS: chlordiazePOXIDE HCL 25 MG CAPSULE PO SCH ×2 (06:06→10:29)
[2018-05-04 09:33] VITALS: BP 126/80; PULSE 99; TEMP 96.7
[2018-05-04] MEDS: NICOTINE 14 MG/24 HOURS TOPICAL PATCH TD SCH (10:29)
[2018-05-04] MEDS: PRENATAL VITAMINS W/ FOLIC ACID TABLET (FP) PO SCH (10:29)
--- NOTE | 2018-05-04 13:34 | PN ---
S CIWA - CIWA Score Nausea/Vomitin-No Nausea/No Vomiting Muscle Tremors: 2 Anxiety: 3 Agitation: 2 Paroxysmal Sweats: 3 Orientation: 0-Oriented Tacttile Disturbances: 1-Very Mild Itch/Numbness Auditory Disturbances: 0-None Visual Disturbances: 0-None Headache: 0-None Present CIWA-Ar Total Score: 11 BHS Progress Note (SOAP) Subjective: Tremors, Fatigue, Sweating. Objective: PATIENT A & O X 3, OBSERVED AMBULATING ON UNIT. IN NO ACUTE DISTRESS. 05/04/18 13:35 Vital Signs Temperature 96.7 F L 05/04/18 09:32 Pulse Rate 99 H 05/04/18 09:32 Respiratory Rate 18 05/04/18 09:32 Blood Pressure 126/80 05/04/18 09:32 O2 Sat by Pulse Oximetry (%) Laboratory Tests 05/03/18 05/03/18 05/03/18 07:00 07:00 07:00 WBC 6.6 RBC 4.74 Hgb 13.6 Hct 40.9 MCV 86.2 MCH 28.6 MCHC 33.2 RDW 14.1 D Plt Count 355 D MPV 9.7 Sodium 140 Potassium 3.8 Chloride 109 H Carbon Dioxide 26 Anion Gap 6 L BUN 14 Creatinine 1.0 Creat Clearance w eGFR > 60 Random Glucose 125 H Calcium 8.5 Total Bilirubin 0.5 AST 17 ALT 22 Alkaline Phosphatase 77 Total Protein 6.7 Albumin 2.7 L RPR Titer Nonreactive LABS NOTED. Assessment: 05/04/18 13:35 WITHDRAWAL SYMPTOMS. Plan: CONTINUE DETOX.
--- NOTE | 2018-05-04 13:40 | DS ---
[facility] Detox Discharge Summary Admission Date: 05/02/18 Discharge Date: 05/04/18 - History Present History: Alcohol Dependence, Cannabis Dependence, Cocaine Dependence, Opioid Dependence Additional Comments: DESPITE ENCOURAGEMENT FROM [employer] AND NURSING AND COUNSELING STAFF TO REMAIN TO COMPLETE DETOX REGIMEN, PATIENT DOES NOT WISH TO REMAIN TO COMPLETE DETOX REGIMEN, CLEARLY STATING THAT HE "WANTS TO LEAVE TO GO AND GET HIGH." RISKS OF LEAVING DETOX UNIT AGAINST MEDICAL ADVICE AND PRIOR TO COMPLETION OF DETOX REGIMEN EXPLAINED TO PATIENT. PATIENT ADVISED TO GO IMMEDIATELY TO NEAREST ER SHOULD ANY INTOLERABLE DETOX SYMPTOMS DEVELOP AT ANY TIME. PATIENT VERBALIZED UNDERSTANDING OF ALL INFORMATION / RECOMMENDATIONS PRESENTED TO HIM PRIOR TO DEPARTURE FROM DETOX UNIT. PATIENT LEFT DETOX UNIT IN STABLE MEDICAL CONDITION. Pertinent Past History: History of Anemia, H.I.V., Transgender ([id number]), History of Depression, Nicotine Dependence, Weight Loss, Intravenous Drug User, History of Tachycardia , History of Seizures (Due to Withdrawal), History of Insomnia. - Physical Exam Results Vital Signs: Vital Signs Temperature 96.7 F L 05/04/18 09:32 Pulse Rate 99 H 05/04/18 09:32 Respiratory Rate 18 05/04/18 09:32 Blood Pressure 126/80 05/04/18 09:32 O2 Sat by Pulse Oximetry (%) Pertinent Admission Physical Exam Findings: WITHDRAWAL SYMPTOMS. Laboratory Tests 05/03/18 05/03/18 05/03/18 07:00 07:00 07:00 WBC 6.6 RBC 4.74 Hgb 13.6 Hct 40.9 MCV 86.2 MCH 28.6 MCHC 33.2 RDW 14.1 D Plt Count 355 D MPV 9.7 Sodium 140 Potassium 3.8 Chloride 109 H Carbon Dioxide 26 Anion Gap 6 L BUN 14 Creatinine 1.0 Creat Clearance w eGFR > 60 Random Glucose 125 H Calcium 8.5 Total Bilirubin 0.5 AST 17 ALT 22 Alkaline Phosphatase 77 Total Protein 6.7 Albumin 2.7 L RPR Titer Nonreactive LABS NOTED. - Treatment Hospital Course: Detoxed Safely - Medication Discharge Medications: Ambulatory Orders Estradiol Valerate [Delestrogen] 40 mg IM Q15D 12/08/15 Elviteg/Cob/Emtri/Tenof Alafen [Genvoya Tablet] 1 each PO DAILY 02/18/18 Spironolactone [Aldactone] 100 mg PO TID #30 tablet 02/21/18 - Diagnosis (1) Alcohol dependence with withdrawal Status: Acute Qualifiers: Complication of substance-induced condition: uncomplicated Qualified Code(s ): F10.230 - Alcohol dependence with withdrawal, uncomplicated (2) At risk for dehydration due to poor fluid intake Status: Acute (3) Borderline elevation of pulse rate determined by examination Status: Acute (4) IVDU (intravenous drug user) Status: Acute (5) Weight loss Status: Acute (6) Anemia Status: Chronic Qualifiers: Anemia type: unspecified type Qualified Code(s): D64.9 - Anemia, unspecified (7) Sgeu-nv-xpxusp transgender person Status: Chronic (8) Nicotine dependence Status: Chronic Qualifiers: Nicotine product type: cigarettes Substance use status: uncomplicated Qualified Code(s): F17.210 - Nicotine dependence, cigarettes, uncomplicated (9) Cannabis dependence Status: Chronic (10) Cocaine dependence Status: Chronic Qualifiers: Substance use status: uncomplicated Qualified Code(s): F14.20 - Cocaine dependence, uncomplicated (11) HIV disease Status: Chronic (12) Substance induced mood disorder Status: Suspected (13) Opioid dependence Status: Chronic Qualifiers: Substance use status: uncomplicated Qualified Code(s): F11.20 - Opioid dependence, uncomplicated - AMA Did Patient Leave Against Medical Advice: Yes (PATIENT DID NOT WISH TO REMAIN TO COMPLETE DETOX REGIMEN.)
[2018-05-04] MEDS ORDERED: chlordiazePOXIDE 5 MG CAPSULE PO SCH (23:00)
[2018-05-05] MEDS ORDERED: chlordiazePOXIDE HCL 10 MG CAPSULE PO SCH (23:00)
== END 2018-05-04 11:30 | disposition left against medical advice (07) | DRG 770 ==
LOC: YASAS 13:58 → Y3N 18:33
PROVIDERS: ADMIT Surgery; ATTEND Surgery
PROC: HZ2ZZZZ Detoxification Services for Substance Abuse Treatment (ICD-10-PCS; principal; 2018-05-02)
DX: F10.230 Alcohol dependence with withdrawal, uncomplicated (principal); F11.20 Opioid dependence, uncomplicated; F14.20 Cocaine dependence, uncomplicated; F12.20 Cannabis dependence, uncomplicated; F17.210 Nicotine dependence, cigarettes, uncomplicated; F64.0 Transsexualism; F19.24 Other psychoactive substance dependence with psychoactive substance-induced mood disorder; R63.8 Other symptoms and signs concerning food and fluid intake; D64.9 Anemia, unspecified; Z21 Asymptomatic human immunodeficiency virus [HIV] infection status; G47.00 Insomnia, unspecified; R00.8 Other abnormalities of heart beat; Z91.14 Patient's other noncompliance with medication regimen; Z87.890 Personal history of sex reassignment; Z86.69 Personal history of other diseases of the nervous system and sense organs
CPT/HCPCS: 36415; 80053; 85027; 86593

== ENCOUNTER 2018-05-25 09:39 | Inpatient (IN) | payer OTHER ==
[2018-05-25 11:06] VITALS: BMI 22.2
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
[2018-05-25] MEDS ORDERED: NICOTINE POLACRILEX 2 MG GUM BUC PRN (14:00)
[2018-05-25] MEDS ORDERED: MAGNESIUM HYDROX 2400MG/30ML ORAL SUSPENSION 30 ML CUP PO PRN (14:00)
[2018-05-25] MEDS ORDERED: IBUPROFEN 400 MG TABLET (FP) PO PRN (14:00)
[2018-05-25] MEDS ORDERED: MAG HYDROX/AL HYDROX/SIMETH 30 ML UNIT-DOSE CUP PO PRN (14:00)
[2018-05-25] MEDS ORDERED: ACETAMINOPHEN 325 MG TABLET (FP) PO PRN ×2 (14:00)
[2018-05-25] MEDS ORDERED: DICYCLOMINE HCL 10 MG CAPSULE PO PRN (14:00)
[2018-05-25] MEDS ORDERED: MENTHOL/PHENOL 1 EACH UD MM PRN (14:00)
[2018-05-25] MEDS ORDERED: MAGNESIUM CITRATE 300 ML BOTTLE PO PRN (14:00)
[2018-05-25] MEDS ORDERED: chlordiazePOXIDE HCL 25 MG CAPSULE PO PRN (14:00)
[2018-05-25] MEDS: chlordiazePOXIDE HCL 25 MG CAPSULE PO SCH ×2 (18:24→23:03)
[2018-05-25] MEDS: THIAMINE HCL 100 MG TABLET (FP) PO SCH (23:03)
[2018-05-26] MEDS: chlordiazePOXIDE HCL 25 MG CAPSULE PO SCH ×4 (07:16→22:17)
[2018-05-26] MEDS: PRENATAL VITAMINS W/ FOLIC ACID TABLET (FP) PO SCH (10:05)
[2018-05-26 10:46] LABS: ALBUMIN 2.9 g/dl (3.4-5.0); ALK PHOS 77 U/L (45-117); ANION GAP 4 MMOL/L (8-16); BILIRUBIN,TOTAL 0.7 mg/dL (0.2-1); BLOOD UREA NITROGEN 16 mg/dL (7-18); CALCIUM 8.1 mg/dL (8.5-10.1); CHLORIDE 107 mmol/L (98-107); CO2 28 mmol/L (21-32); CREATININE 0.9 mg/dL (0.55-1.3); GLUCOSE,RANDOM 84 mg/dL (74-106); POTASSIUM 4.2 mmol/L (3.5-5.1); SGOT/AST 12 U/L (15-37); SGPT/ALT 18 U/L (13-61); SODIUM 139 mmol/L (136-145)
[2018-05-26 11:42] LABS: HEMATOCRIT 39.9 % (35.4-49); HEMOGLOBIN 13.4 GM/dL (11.7-16.9); MCH 28.4 pg (25.7-33.7); MCHC 33.5 g/dl (32.0-35.9); MEAN CELL VOLUME 84.6 fl (80-96); MEAN PLT VOLUME 9.4 fl (7.5-11.1); PLATELET COUNT 296 K/MM3 (134-434); RBC 4.71 M/mm3 (4.00-5.60); RDW 14.7 % (11.9-15.9); WHITE BLOOD COUNT 6.5 K/mm3 (4.0-10.0)
--- NOTE | 2018-05-26 17:13 | PN ---
S CIWA - CIWA Score Nausea/Vomitin Muscle Tremors: 4-Moderate,w/Arms Extend Anxiety: 4-Mod. Anxious/Guarded Agitation: 4-Moderately Restless Paroxysmal Sweats: 3 Orientation: 0-Oriented Tacttile Disturbances: 0-None Auditory Disturbances: 0-None Visual Disturbances: 0-None Headache: 0-None Present CIWA-Ar Total Score: 17 BHS Progress Note (SOAP) Subjective: Chills, sweating, tremor, interrupted sleep, vomiting Objective: 05/26/18 17:12 Last Vital Signs Temp Pulse Resp BP Pulse Ox 98.3 F 79 18 120/60 05/26/18 14:15 05/26/18 14:15 05/26/18 14:15 05/26/18 14:15 Laboratory Tests 05/26/18 05/26/18 08:00 08:00 WBC 6.5 RBC 4.71 Hgb 13.4 Hct 39.9 MCV 84.6 MCH 28.4 MCHC 33.5 RDW 14.7 Plt Count 296 MPV 9.4 Sodium 139 Potassium 4.2 Chloride 107 Carbon Dioxide 28 Anion Gap 4 L BUN 16 Creatinine 0.9 Creat Clearance w eGFR > 60 Random Glucose 84 Calcium 8.1 L Total Bilirubin 0.7 AST 12 L ALT 18 Alkaline Phosphatase 77 Total Protein 7.0 Albumin 2.9 L Labs reviewed Assessment: 05/26/18 17:12 Withdrawal symptoms Plan: Continue detox Encouraged PO water intake
[2018-05-26] MEDS: THIAMINE HCL 100 MG TABLET (FP) PO SCH (22:17)
[2018-05-26] MEDS: MELATONIN 5 MG TABLETS PO PRN (22:17)
[2018-05-27] MEDS: chlordiazePOXIDE HCL 25 MG CAPSULE PO SCH ×2 (07:30→10:21)
[2018-05-27] MEDS: PRENATAL VITAMINS W/ FOLIC ACID TABLET (FP) PO SCH (10:21)
--- NOTE | 2018-05-27 11:30 | PN ---
S CIWA - CIWA Score Nausea/Vomitin-No Nausea/No Vomiting Muscle Tremors: 3 Anxiety: 3 Agitation: 3 Paroxysmal Sweats: 3 Orientation: 0-Oriented Tacttile Disturbances: 0-None Auditory Disturbances: 0-None Visual Disturbances: 0-None Headache: 0-None Present CIWA-Ar Total Score: 12 S Progress Note (SOAP) Subjective: sweats shakes irritable interrupted sleep body aches Objective: 05/27/18 11:30 Vital Signs Temperature 97.9 F 05/27/18 09:38 Pulse Rate 81 05/27/18 09:38 Respiratory Rate 20 05/27/18 09:38 Blood Pressure 123/69 05/27/18 09:38 O2 Sat by Pulse Oximetry (%) Laboratory Tests 05/26/18 05/26/18 05/26/18 08:00 08:00 08:00 WBC 6.5 RBC 4.71 Hgb 13.4 Hct 39.9 MCV 84.6 MCH 28.4 MCHC 33.5 RDW 14.7 Plt Count 296 MPV 9.4 Sodium 139 Potassium 4.2 Chloride 107 Carbon Dioxide 28 Anion Gap 4 L BUN 16 Creatinine 0.9 Creat Clearance w eGFR > 60 Random Glucose 84 Calcium 8.1 L Total Bilirubin 0.7 AST 12 L ALT 18 Alkaline Phosphatase 77 Total Protein 7.0 Albumin 2.9 L RPR Titer Nonreactive aaox3 ambulating no acute distress Assessment: 05/27/18 11:30 withdrawal sx Plan: continue detox increase fluids pending labs
[2018-05-27] MEDS: chlordiazePOXIDE HCL 10 MG CAPSULE PO SCH ×2 (16:54→22:10)
[2018-05-27] MEDS ORDERED: chlordiazePOXIDE HCL 10 MG CAPSULE PO PRN (17:00)
[2018-05-27] MEDS: MELATONIN 5 MG TABLETS PO PRN (22:10)
[2018-05-27] MEDS: THIAMINE HCL 100 MG TABLET (FP) PO SCH (22:10)
[2018-05-28] MEDS: chlordiazePOXIDE HCL 10 MG CAPSULE PO SCH ×3 (06:43→17:11)
[2018-05-28] MEDS: PRENATAL VITAMINS W/ FOLIC ACID TABLET (FP) PO SCH (10:27)
--- NOTE | 2018-05-28 11:02 | PN ---
BHS Progress Note (SOAP) Subjective: feeling better wants less librium ordered little sweats Objective: 05/28/18 11:00 Vital Signs Temperature 96.4 F L 05/28/18 09:17 Pulse Rate 70 05/28/18 09:17 Respiratory Rate 18 05/28/18 09:17 Blood Pressure 109/67 05/28/18 09:17 O2 Sat by Pulse Oximetry (%) aaox3 ambulating no acute distress Assessment: 05/28/18 11:01 mild withdrawal sx Plan: continue detox increase fluids librium decreased as per pt request d/c in am
[2018-05-28] MEDS: THIAMINE HCL 100 MG TABLET (FP) PO SCH (22:23)
[2018-05-29] MEDS: chlordiazePOXIDE HCL 10 MG CAPSULE PO SCH (06:23)
--- NOTE | 2018-05-29 09:09 | DS ---
[facility] Detox Discharge Summary Admission Date: 05/25/18 Discharge Date: 05/29/18 - History Present History: Alcohol Dependence, Cannabis Dependence, Cocaine Dependence, Opioid Dependence - Physical Exam Results Vital Signs: Vital Signs Temperature 97.7 F 05/29/18 07:19 Pulse Rate 70 05/29/18 07:19 Respiratory Rate 18 05/29/18 07:19 Blood Pressure 110/71 05/29/18 07:19 O2 Sat by Pulse Oximetry (%) - Treatment Hospital Course: Detox Protocol Followed, Detoxed Safely, Responded well, Discharged Condition Good, Rehab Referral Accepted - Medication Discharge Medications: Ambulatory Orders Estradiol Valerate [Delestrogen] 40 mg IM Q15D 12/08/15 Elviteg/Cob/Emtri/Tenof Alafen [Genvoya Tablet] 1 each PO DAILY 02/18/18 Spironolactone [Aldactone] 100 mg PO TID #30 tablet 02/21/18 - Diagnosis (1) Alcohol dependence with withdrawal Current Visit: Yes Status: Chronic Qualifiers: Complication of substance-induced condition: uncomplicated Qualified Code(s ): F10.230 - Alcohol dependence with withdrawal, uncomplicated (2) Cannabis dependence Current Visit: Yes Status: Chronic (3) Cocaine dependence Current Visit: Yes Status: Chronic Qualifiers: Substance use status: uncomplicated Qualified Code(s): F14.20 - Cocaine dependence, uncomplicated (4) Nicotine dependence Current Visit: Yes Status: Chronic Qualifiers: Nicotine product type: cigarettes Substance use status: uncomplicated Qualified Code(s): F17.210 - Nicotine dependence, cigarettes, uncomplicated (5) At risk for dehydration due to poor fluid intake Current Visit: Yes Status: Acute (6) Borderline elevation of pulse rate determined by examination Current Visit: No Status: Acute (7) IVDU (intravenous drug user) Current Visit: No Status: Acute (8) Methamphetamine abuse Current Visit: Yes Status: Acute (9) Opioid dependence with withdrawal Current Visit: Yes Status: Chronic (10) Substance-induced sleep disorder Current Visit: No Status: Acute (11) Substance-induced sleep disorder Current Visit: No Status: Acute (12) Anemia Current Visit: No Status: Chronic Qualifiers: Anemia type: unspecified type Qualified Code(s): D64.9 - Anemia, unspecified (13) Endocrine disorder in qngz-hs-vzmyis transgender person Current Visit: No Status: Chronic (14) HIV disease Current Visit: Yes Status: Chronic (15) Insomnia Current Visit: No Status: Chronic (16) Egqr-va-fadcfp transgender person Current Visit: No Status: Chronic (17) Nicotine dependence Current Visit: Yes Status: Chronic Qualifiers: Nicotine product type: cigarettes Substance use status: uncomplicated Qualified Code(s): F17.210 - Nicotine dependence, cigarettes, uncomplicated (18) Opioid dependence Current Visit: Yes Status: Chronic Qualifiers: Substance use status: uncomplicated Qualified Code(s): F11.20 - Opioid dependence, uncomplicated (19) Substance induced mood disorder Current Visit: No Status: Suspected - AMA Did Patient Leave Against Medical Advice: No (referred to [facility])
[2018-05-29] MEDS: PRENATAL VITAMINS W/ FOLIC ACID TABLET (FP) PO SCH (11:08)
[2018-05-29 13:49] VITALS: BP 124/63; PULSE 80; TEMP 98.6
== END 2018-05-29 13:45 | disposition other institution (70) | DRG 773 ==
LOC: YASAS 09:39 → Y6N 16:13
PROVIDERS: ADMIT Surgery; ATTEND Surgery
PROC: HZ2ZZZZ Detoxification Services for Substance Abuse Treatment (ICD-10-PCS; principal; 2018-05-25)
DX: F11.23 Opioid dependence with withdrawal (principal); F14.20 Cocaine dependence, uncomplicated; F12.20 Cannabis dependence, uncomplicated; F15.10 Other stimulant abuse, uncomplicated; F17.210 Nicotine dependence, cigarettes, uncomplicated; F19.24 Other psychoactive substance dependence with psychoactive substance-induced mood disorder; F19.282 Other psychoactive substance dependence with psychoactive substance-induced sleep disorder; F64.0 Transsexualism; D64.9 Anemia, unspecified; R63.8 Other symptoms and signs concerning food and fluid intake; R00.8 Other abnormalities of heart beat; G47.00 Insomnia, unspecified; Z21 Asymptomatic human immunodeficiency virus [HIV] infection status; Z87.438 Personal history of other diseases of male genital organs; Z87.890 Personal history of sex reassignment; Z86.69 Personal history of other diseases of the nervous system and sense organs
CPT/HCPCS: 36415; 80053; 85027; 86593

== ENCOUNTER 2018-05-29 13:58 | Inpatient (IN) | payer OTHER ==
[2018-05-29 14:18] VITALS: BMI 23.1
[2018-05-29] MEDS ORDERED: MAG HYDROX/AL HYDROX/SIMETH 30 ML UNIT-DOSE CUP PO PRN (15:54)
[2018-05-29] MEDS ORDERED: MENTHOL/PHENOL 1 EACH UD MM PRN (15:54)
[2018-05-29] MEDS ORDERED: guaiFENesin 200 MG/10 ML 10 ML UNIT-DOSE CUPS PO PRN (15:54)
[2018-05-29] MEDS ORDERED: NICOTINE POLACRILEX 4 MG GUM BUC PRN (15:54)
[2018-05-29] MEDS ORDERED: MAGNESIUM CITRATE 300 ML BOTTLE PO PRN (15:54)
[2018-05-29] MEDS ORDERED: IBUPROFEN 400 MG TABLET (FP) PO PRN (15:54)
[2018-05-29] MEDS ORDERED: ACETAMINOPHEN 325 MG TABLET (FP) PO PRN (15:54)
[2018-05-29] MEDS ORDERED: LOPERAMIDE HCL 2 MG CAPSULE PO PRN (15:54)
[2018-05-29] MEDS ORDERED: P-EPHED 60MG/TRIPROLIDI 2.5MG TABLET PO PRN (15:54)
[2018-05-29] MEDS ORDERED: MAGNESIUM HYDROX 2400MG/30ML ORAL SUSPENSION 30 ML CUP PO PRN (15:54)
--- NOTE | 2018-05-29 15:54 | HP ---
[facility] Rehab Assess/Revision - Admission History Admitted to Rehab from: [address] - Vital signs Vital Signs: Vital Signs Period Temp Pulse Resp BP Sys/Le Pulse Ox Last 24 Hr 97.8 F 87 18 112/65 - Findings Detox History & Physical reviewed: Yes Concur with findings: Yes Inpatient Rehab Admission - Rehab Decision to Admit Inpatient rehab admission?: Yes - Initial Determination Are CD services needed?: Yes Free of communicable disease: Yes Not in need of hospitalization: Yes - Rehab Admission Criteria Previous failed treatment: Yes Poor recovery environment: Yes Comorbidities: Yes Lacks judgement: Yes Patient is meeting Inpatient Rehab admission criteria:: Yes
--- NOTE | 2018-05-29 16:00 | PN ---
S Progress Note Note: no confirmation on home medication pt states he has been prescribed. hormonal medication cannot be verified therefor order not placed while pt is in rehab.
[2018-05-29] MEDS: THIAMINE HCL 100 MG TABLET (FP) PO SCH (21:56)
[2018-05-29] MEDS: hydrOXYzine PAMOATE 50 MG CAPSULE (FP) PO PRN (23:17)
[2018-05-29] MEDS: MELATONIN 5 MG TABLETS PO PRN (23:17)
[2018-05-30] MEDS: NICOTINE 21 MG/24 HOURS TOPICAL PATCH TD SCH (10:21)
[2018-05-30] MEDS: PRENATAL VITAMINS W/ FOLIC ACID TABLET (FP) PO SCH (10:21)
[2018-05-30] MEDS: THIAMINE HCL 100 MG TABLET (FP) PO SCH (21:46)
[2018-05-30] MEDS: hydrOXYzine PAMOATE 50 MG CAPSULE (FP) PO PRN (21:46)
[2018-05-30] MEDS: MELATONIN 5 MG TABLETS PO PRN (21:46)
--- NOTE | 2018-05-31 09:45 | PN ---
[facility] Progress Note Note: PATIENT SEEN FOR C/O SOB. PATIENT EVALUATED WHILE IN BED, STATES HAVING MILD SOB , WEAKNESS AND DIARRHEA. REPORTS HAVING MULTIPLE BM IN 24 HOUR PERIOD, DENIES CHEST PAIN, COUGH, FEVER AND DIZZINESS. PMH INCLUDES HIV +, NON-COMPLIANT WITH MEDS. Vital Signs Temperature 97.5 F L 05/30/18 06:58 Pulse Rate 69 05/31/18 06:46 Respiratory Rate 18 05/31/18 06:46 Blood Pressure 121/65 05/31/18 06:46 O2 Sat by Pulse Oximetry (%) PE: ALERT AND ORIENTED X 3 CALM, RESTING IN BED SKIN WARM AND DRY, TEMP 98.8 CAR S1S2, HR 80, BP 110/72 RESP CTA BL, O2 SATS 96% EXT FULL ROM, AMB AD ZANDER A/P: DIARRHEA MILD SOB-STABLE WEAKNESS CONTINUE IMMODIUM PRN ENCOURAGE ORAL FLUIDS ENSURE 120CC PO BID CONTINUE TO MONITOR, IF SX PERSIST, WORK UP WITH LABS, CXR
[2018-05-31] MEDS: PRENATAL VITAMINS W/ FOLIC ACID TABLET (FP) PO SCH (10:59)
[2018-05-31] MEDS: NICOTINE 21 MG/24 HOURS TOPICAL PATCH TD SCH (11:00)
[2018-05-31] MEDS: THIAMINE HCL 100 MG TABLET (FP) PO SCH (21:21)
[2018-05-31] MEDS: hydrOXYzine PAMOATE 50 MG CAPSULE (FP) PO PRN (21:21)
[2018-05-31] MEDS: MELATONIN 5 MG TABLETS PO PRN (21:21)
[2018-06-01 06:57] VITALS: TEMP 97.4
[2018-06-01] MEDS: PRENATAL VITAMINS W/ FOLIC ACID TABLET (FP) PO SCH (10:41)
[2018-06-01] MEDS: NICOTINE 21 MG/24 HOURS TOPICAL PATCH TD SCH (10:42)
[2018-06-01] MEDS: hydrOXYzine PAMOATE 50 MG CAPSULE (FP) PO PRN (13:34)
[2018-06-01] MEDS: THIAMINE HCL 100 MG TABLET (FP) PO SCH (21:52)
[2018-06-02 07:01] VITALS: BP 119/68; PULSE 73
--- NOTE | 2018-06-02 10:51 | PN ---
[facility] Progress Note Note: patient did not want to complete treatment,all attempts to convince patient to stay with no avail,seen by counselor, signed release ama,has medications at home,risk of relapsing explained to patient,advise to go to nearest emergency room if any problem Vital Signs Temperature 97.4 F L 06/02/18 07:00 Pulse Rate 73 06/02/18 07:00 Respiratory Rate 18 06/02/18 07:00 Blood Pressure 119/68 06/02/18 07:00 O2 Sat by Pulse Oximetry (%) left rehab in stable condition
--- NOTE | 2018-06-02 10:54 | DS ---
[facility] Detox Discharge Summary Admission Date: 05/29/18 Discharge Date: 06/02/18 - History Present History: Alcohol Dependence, Cocaine Dependence, Opioid Dependence Additional Comments: this discharge summary is for rehab ,patient signed relase ama Pertinent Past History: male to female transgender hiv - Physical Exam Results Vital Signs: Vital Signs Temperature 97.4 F L 06/02/18 07:00 Pulse Rate 73 06/02/18 07:00 Respiratory Rate 18 06/02/18 07:00 Blood Pressure 119/68 06/02/18 07:00 O2 Sat by Pulse Oximetry (%) - Medication Discharge Medications: Ambulatory Orders Estradiol Valerate [Delestrogen] 40 mg IM Q15D 12/08/15 Elviteg/Cob/Emtri/Tenof Alafen [Genvoya Tablet] 1 each PO DAILY 02/18/18 Spironolactone [Aldactone] 100 mg PO TID #30 tablet 02/21/18 - AMA Did Patient Leave Against Medical Advice: Yes
== END 2018-06-02 10:20 | disposition left against medical advice (07) | DRG 770 ==
LOC: YASAS 13:58 → Y3W 13:59
PROVIDERS: ADMIT Neuromusculoskeletal Medicine & OMM; ATTEND Neuromusculoskeletal Medicine & OMM
PROC: HZ42ZZZ Group Counseling for Substance Abuse Treatment, Cognitive-Behavioral (ICD-10-PCS; principal; 2018-05-29)
DX: F11.20 Opioid dependence, uncomplicated (principal); F10.20 Alcohol dependence, uncomplicated; F14.20 Cocaine dependence, uncomplicated; F64.0 Transsexualism; Z21 Asymptomatic human immunodeficiency virus [HIV] infection status

== ENCOUNTER 2018-08-10 12:57 | Inpatient (IN) | payer OTHER | END 2018-08-12 08:25 | disposition left against medical advice (07) | LOC: Y6N 08-11 18:33 → YASAS 12:57 → Y6N 08-11 18:44 → Y3N 15:40 ==